=== PATIENT | female | born 1970 | race Caucasian/White ===

== ENCOUNTER 2017-02-28 21:09 | Inpatient (IN) | payer MEDICARE, MEDICAID ==
[~2017-02-28] VITALS: Ht 165.1 cm; Wt 92.7 kg
[2017-02-28 21:10] VITALS: BP 131/84; PULSE 95; RESP 16; TEMP 99.3; O2SAT 98
[2017-02-28] MEDS ORDERED: SODIUM CHLOR 0.9% 1000 ML INJ 1,000 ML IV SCH ×2 (22:14→23:16)
[2017-02-28] MEDS ORDERED: HYDROmorphone HCL PF 1 MG/ML VIAL IVS ONE (22:15)
[2017-02-28] MEDS ORDERED: PANTOPRAZOLE SODIUM 40 MG VIAL IVP ONE (22:15)
[2017-02-28] MEDS ORDERED: SODIUM CHLORIDE 0.9% FLUSH 10 ML FLUSH IV FLUSH PRN (22:15)
[2017-02-28] MEDS ORDERED: ALUMINUM/MAGNESIUM/SIMETH 30 ML CUP PO ONE (22:15)
[2017-02-28] MEDS ORDERED: ONDANSETRON HCL 4 MG/2 ML VIAL IVP ONE (22:15)
[2017-02-28] MEDS ORDERED: LIDOCAINE VISCOUS 2% SOLN 15 ML UDC PO ONE (22:15)
--- NOTE | 2017-02-28 22:17 | PD ---
HPI Chief Complaint: Abdominal Pain Time Seen by Provider: 22:08 Travel History International Travel<30 days: No Contact w/Intl Traveler<30days: No Traveled to known affect area: No History of Present Illness HPI 46 her old female presents for evaluation of abdominal pain. She reports over the past 4 days she's been having myalgias. She developed abdominal pain 2 days ago. She describes it as an aching pain that seems to be worse on the left side of her abdomen and radiating to the left back. Pain is constant, no aggravating or relieving factors. She endorses vomiting for the past 2 days. She tried using [id number] NSAIDs which did not seem to help with her pain. She endorses subjective fevers at home. She denies any dysuria or hematuria, diarrhea or constipation, dietary indiscretions, recent travel, recent surgeries. Denies history of peptic ulcer disease, gastric ulcers, diverticulosis, IBS, IBD, biliary pathology. She reports a history of total hysterectomy. No other abdominal surgeries. She has never had this type of pain before. She has no other complaints at this time. COUNT INCLUDES THE [facility] Past Medical History ?: Not Past Surgical History Eye Surgery: Yes Hysterectomy: Yes Social History Alcohol Use: Yes (occassional) Tobacco Use: Yes Substance Use: No Allergies-Medications (Allergen,Severity, Reaction): Coded Allergies: Morphine (Verified Allergy, Intermediate, 02/28/17) Sulfa (Verified Allergy, Intermediate, 02/28/17) Reported Meds & Prescriptions Reported Meds & Active Scripts Active No Active Prescriptions or Reported Medications Review of Systems Except as stated in HPI: all other systems reviewed are Neg Physical Exam Narrative GENERAL: Well-developed well-nourished female in no acute distress SKIN: Warm and dry. HEAD: Atraumatic. Normocephalic. EYES: Pupils equal and round. No scleral icterus. No injection or drainage. ENT: No nasal bleeding or discharge. Mucous membranes pink and moist. NECK: Trachea midline. No JVD. CARDIOVASCULAR: Regular rate and rhythm. No murmur appreciated. RESPIRATORY: No accessory muscle use. Clear to auscultation. Breath sounds equal bilaterally. GASTROINTESTINAL: Abdomen soft, generalized tenderness to palpation without guarding. No right upper quadrant tenderness. No CVA tenderness. MUSCULOSKELETAL: No obvious deformities. No edema. NEUROLOGICAL: Awake and alert. No obvious cranial nerve deficits. Motor grossly within normal limits. Normal speech. PSYCHIATRIC: Appropriate mood and affect; insight and judgment normal. Data Data Last Documented VS Vital Signs Date Time Temp Pulse Resp B/P Pulse Ox O2 Delivery O2 Flow Rate FiO2 02/28/17 21:10 99.3 95 16 131/84 98 Room Air Orders Complete Blood Count With Diff (02/28/17 22:14) Comprehensive Metabolic Panel (02/28/17 22:14) Lipase (02/28/17 22:14) Lactic Acid (02/28/17 22:14) Urinalysis - C+S If Indicated (02/28/17 22:14) Iv Access Insert/Monitor (02/28/17 22:14) Ecg Monitoring (02/28/17 22:14) Oximetry (02/28/17 22:14) Ondansetron Inj (Zofran Inj) (02/28/17 22:15) Pantoprazole Inj (Protonix Inj) (02/28/17 22:15) Sodium Chlor 0.9% 1000 Ml Inj (Ns 1000 M (02/28/17 22:14) Sodium Chloride 0.9% Flush (Ns Flush) (02/28/17 22:15) Hydromorphone Pf Inj (Dilaudid Pf Inj) (02/28/17 22:15) Al-Mag Hy-Si 40-40-4 Mg/Ml Liq (Mag-Al P (02/28/17 22:15) Lidocaine 2% Viscous (Xylocaine 2% Visco (02/28/17 22:15) Ct Abd/Pel W Iv Contrast(Rout) (02/28/17 22:23) Sodium Chlor 0.9% 1000 Ml Inj (Ns 1000 M (02/28/17 23:16) Iohexol 350 Inj (Omnipaque 350 Inj) (02/28/17 23:43) Urine Culture (02/28/17 23:35) Blood Culture (03/01/17 00:05) Sodium Chlor 0.9% 1000 Ml Inj (Ns 1000 M (03/01/17 00:05) Ceftriaxone Inj (Rocephin Inj) (03/01/17 00:15) Admit To Inpatient (03/01/17 ) Vital Signs (Adult) Q4H (03/01/17 00:23) Activity Oob With Assistance (03/01/17 00:23) Funeral Service Practitioner/Embalmer / Telemetry .CONTINUOUS (03/01/17 00:23) Diet Npo (03/01/17 Breakfast) Sodium Chlor 0.9% 1000 Ml Inj (Ns 1000 M (03/01/17 00:23) Sodium Chloride 0.9% Flush (Ns Flush) (03/01/17 00:30) Sodium Chloride 0.9% Flush (Ns Flush) (03/01/17 09:00) Ondansetron Inj (Zofran Inj) (03/01/17 00:30) Basic Metabolic Panel (Bmp) (03/02/17 06:00) Complete Blood Count With Diff (03/02/17 06:00) Case Management Consult (03/01/17 00:23) Naloxone Inj (Narcan Inj) (03/01/17 00:30) Inpatient Certification (03/01/17 ) Admit Order (Ed Use Only) (03/01/17 00:25) Consult Urology (03/01/17 ) Labs Laboratory Tests Test 02/28/17 02/28/17 02/28/17 22:50 23:05 23:35 White Blood Count 20.0 TH/MM3 Red Blood Count 4.37 MIL/MM3 Hemoglobin 14.1 GM/DL Hematocrit 39.8 % Mean Corpuscular Volume 91.0 FL Mean Corpuscular Hemoglobin 32.3 PG Mean Corpuscular Hemoglobin 35.5 % Concent Red Cell Distribution Width 14.1 % Platelet Count 217 TH/MM3 Mean Platelet Volume 10.4 FL Neutrophils (%) (Auto) 84.4 % Lymphocytes (%) (Auto) 6.5 % Monocytes (%) (Auto) 8.6 % Eosinophils (%) (Auto) 0.3 % Basophils (%) (Auto) 0.2 % Neutrophils # (Auto) 16.9 TH/MM3 Lymphocytes # (Auto) 1.3 TH/MM3 Monocytes # (Auto) 1.7 TH/MM3 Eosinophils # (Auto) 0.1 TH/MM3 Basophils # (Auto) 0.0 TH/MM3 CBC Comment AUTO DIFF Differential Total Cells 100 Counted Neutrophils % (Manual) 71 % Band Neutrophils % 15 % Lymphocytes % 3 % Monocytes % 8 % Eosinophils % 1 % Neutrophils # (Manual) 17.6 TH/MM3 Metamyelocytes 2 % Differential Comment FINAL DIFF MANUAL Toxic Granulation 1+ Toxic Vacuolation PRESENT Platelet Estimate NORMAL Platelet Morphology Comment NORMAL Red Cell Morphology Comment NORMAL Sodium Level 138 MEQ/L Potassium Level 4.5 MEQ/L Chloride Level 103 MEQ/L Carbon Dioxide Level 25.7 MEQ/L Anion Gap 9 MEQ/L Blood Urea Nitrogen 39 MG/DL Creatinine 1.58 MG/DL Estimat Glomerular Filtration 35 ML/MIN Rate Random Glucose 98 MG/DL Calcium Level 8.9 MG/DL Total Bilirubin 0.5 MG/DL Aspartate Amino Transf 23 U/L (AST/SGOT) Alanine Aminotransferase 18 U/L (ALT/SGPT) Alkaline Phosphatase 119 U/L Total Protein 7.1 GM/DL Albumin 2.7 GM/DL Lipase 68 U/L Lactic Acid Level 0.7 mmol/L Urine Color YELLOW Urine Turbidity HAZY Urine pH 6.0 Urine Specific [place] 1.022 Urine Protein 30 mg/dL Urine Glucose (UA) NEG mg/dL Urine Ketones NEG mg/dL Urine Occult Blood MOD Urine Nitrite NEG Urine Bilirubin NEG Urine Urobilinogen LESS THAN 2.0 MG/DL Urine Leukocyte Esterase LARGE Urine RBC 46 /hpf Urine WBC 38 /hpf Urine Squamous Epithelial 1 /hpf Cells Urine Renal Epithelial Cells <1 /hpf Urine Bacteria OCC /hpf Urine Mucus FEW /lpf Microscopic Urinalysis Comment CULTURE INDICATED MDM Medical Decision Making Medical Screen Exam Complete: Yes Emergency Medical Condition: Yes Medical Record Reviewed: Yes Differential Diagnosis Diverticulitis, gastritis, dehydration, pyelonephritis, kidney stone, obstruction Narrative Course 46 year old female with left-sided abdominal pain, nausea and vomiting, chills at home. Plan is for basic lab work, IV fluids, IV pain medication and nausea medicine, urinalysis, CT of the abdomen and pelvis. The patient's lab work and imaging studies been reviewed. She has a left-sided 2 mm ureteral stone, urinalysis reveals large leukocytes and hematuria consistent with urinary tract infection, cultures pending. She has a white count of 20 with 15% bands, BUN 39 creatinine1.58 consistent with acute kidney injury, no history of chronic kidney disease. She does appear to meet servers and sepsis criteria. Therefore the patient will be admitted for IV antibiotics , IV fluids, blood cultures and urine cultures pending. The patient is agreeable to this plan. She was given a total of 3 L of fluid, IV Rocephin. Discussed with Dr. Scott who is agreeable with admission. Sepsis Criteria SIRS Criteria (2 or more): Heart rate over 90, WBC > 65333, < 4000 or > 10% bands Sepsis Criteria (SIRS+source): Infect source susp/known Criteria Outcome: Meets sepsis criteria Diagnosis Primary Impression: Ureteral stone Additional Impressions: Pyelonephritis Acute kidney injury Sepsis Qualified Code: A41.9 - Sepsis, due to unspecified organism Admitting Information Admitting Physician Requests: Admit Scripts No Active Prescriptions or Reported Meds Christos Frazier February 28, 2017 22:17
[2017-02-28 23:09] LABS: AUTOMATED NEUTROPHIL # 16.9 TH/MM3 (1.8-7.7); BASOPHIL % 0.2 % (0.0-2.0); EOSINOPHIL # 0.1 TH/MM3 (0-0.4); EOSINOPHIL % 0.3 % (0.0-4.0); HEMATOCRIT 39.8 % (35.0-46.0); LYMPH % 6.5 % (9.0-44.0); LYMPHOCYTE # 1.3 TH/MM3 (1.0-4.8); MEAN CORPUSCULAR HEMOGLOBIN 32.3 PG (27.0-34.0); MEAN CORPUSCULAR HGB CONC 35.5 % (32.0-36.0); MONO % 8.6 % (0.0-8.0); NEUT % 84.4 % (16.0-70.0); PLATELET COUNT 217 TH/MM3 (150-450); RED BLOOD COUNT 4.37 MIL/MM3 (4.00-5.30); RED CELL DISTRIBUTION WIDTH 14.1 % (11.6-17.2)
[2017-02-28 23:14] LABS: HEMO FLAGS AUTO DIFF
[2017-02-28 23:38] LABS: BANDS 15 % (0-6); EOSINOPHILS 1 % (0-4); METAMYELOCYTES 2 % (0-1); NEUTROPHIL # MANUAL DIFF 17.6 TH/MM3 (1.8-7.7); POLYS (SEG NEUTROPHILS) 71 % (16-70); WBC DIFF SAMPLE 100
[2017-02-28 23:39] LABS: SCAN/DIFF FINAL DIFF MANUAL; TOXIC GRANULATION 1+ (NORMAL); TOXIC VACUOLATION PRESENT (NONE SEEN)
[2017-02-28 23:40] LABS: ALKALINE PHOSPHATASE 119 U/L (45-117); PLATELET ESTIMATE SMEAR NORMAL (NORMAL); PLATELET MORPHOLOGY NORMAL (NORMAL); TOTAL BILIRUBIN ADULT 0.5 MG/DL (0.2-1.0)
[2017-02-28] MEDS ORDERED: IOHEXOL 350 MG/ML 10 ML VIAL (for RAD DIAG) IV ONE (23:43)
[2017-02-28 23:46] LABS: ALT (GPT) 18 U/L (10-53); ANION GAP 9 MEQ/L (5-15); AST (GOT) 23 U/L (15-37); BICARBONATE 25.7 MEQ/L (21.0-32.0); BLOOD UREA NITROGEN 39 MG/DL (7-18); CHLORIDE 103 MEQ/L (98-107); GLOMERULAR FILTRATION RATE 35 ML/MIN (>89); POTASSIUM 4.5 MEQ/L (3.5-5.1); SODIUM (NA) 138 MEQ/L (136-145)
[2017-02-28 23:53] LABS: BACTERIA, URINE OCC /hpf; BLOOD, URINE MOD (NEG); COMMENT (UR) CULTURE INDICATED; CULTURE IF INDICATED CULTURE INDICATED; GLUCOSE,URINE NEG (NEG); KETONE, URINE NEG (NEG); MUCUS URINE FEW /lpf (OCC); NITRITE,URINE NEG (NEG); RENAL EPITHELIAL CELLS <1 /hpf; SQUAMOUS EPITHELIAL CELL URINE 1 /hpf (0-5); URINE COLOR YELLOW (YELLW/STRAW)
--- NOTE | 2017-02-28 23:59 | RADRPT ---
EXAM DATE/TIME: 02/28/2017 23:42 [facility] COMPARISON: No previous studies available for comparison. INDICATIONS : Abdomen pain with vomiting past 2 days. IV CONTRAST: 70 cc Omnipaque 350 (iohexol) IV ORAL CONTRAST: No oral contrast ingested. RADIATION DOSE: 13.73 CTDIvol (mGy) MEDICAL HISTORY : None SURGICAL HISTORY : Hysterectomy. ENCOUNTER: Initial ACUITY: 2 days PAIN SCALE: 8/10 LOCATION: Bilateral abdomen TECHNIQUE: Volumetric scanning of the abdomen and pelvis was performed. Using automated exposure control and ad justment of the mA and/or kV according to patient size, radiation dose was kept as low as reasonably achievable to obtain optimal diagnostic quality images. FINDINGS: LOWER LUNGS: Mild bibasilar atelectasis. LIVER: Homogeneous density without lesion. 2 tiny hepatic cysts. There is no dilation of the biliary tree. No calcified gallstones. SPLEEN: Normal size without lesion. PANCREAS: Within normal limits. KIDNEYS: Normal in size and shape. A 2 mm stone is seen within the proximal left ureter. This projects at the level of the L3-L4 disc space. There is mild stranding around the ureter. No perinephric fluid collec tions. Minimal hydronephrosis. Bilateral 1 mm renal calculi noted. ADRENAL GLANDS: Within normal limits. VASCULAR: There is no aortic aneurysm. BOWEL/MESENTERY: The stomach, small bowel, and colon demonstrate no acute abnormality. There is no free intraperitone al air or fluid. ABDOMINAL WALL: Within normal limits. RETROPERITONEUM: There is no lymphadenopathy. A few tiny scattered retroperitoneal nodes are noted. No adenopathy. BLADDER: No wall thickening or mass. REPRODUCTIVE: Prior hysterectomy. INGUINAL: There is no lymphadenopathy or hernia. MUSCULOSKELETAL: Within normal limits for patient age. CONCLUSION: 1. 2 mm proximal left ureteral stone. Mild hydronephrosis. 2. Bilateral 1 mm renal calculi. Freeman Mathews Jr., MD on February 28, 2017 at 23:54 Board Certified Radiologist. This report was verified electronically.
[2017-03-01] MEDS ORDERED: SODIUM CHLOR 0.9% 1000 ML INJ 1,000 ML IV SCH (00:05)
[2017-03-01] MEDS ORDERED: cefTRIAXone INJ 1,000 MG in SODIUM CHLORIDE 0.9% INJ 100 ML IV ONE (00:15)
[2017-03-01] MEDS ORDERED: NALOXONE HCL 0.4 MG/ML AMP IV PRN (00:30)
[2017-03-01] MEDS: ONDANSETRON HCL 4 MG/2 ML VIAL IVP PRN ×3 (00:50→21:13)
[2017-03-01] MEDS: SODIUM CHLOR 0.9% 1000 ML INJ 1,000 ML IV SCH ×3 (01:19→22:27)
[2017-03-01] MEDS ORDERED: HYDROmorphone HCL PF 1 MG/ML VIAL IV PUSH PRN (01:30)
--- NOTE | 2017-03-01 01:39 | HHI.HP ---
[facility] Primary [facility] Physician No Primary Care Physician Admission Diagnosis pyelonephritis, left ureteral stone, KOJO, sepsis Diagnoses: Travel History International Travel<30 Days: No Contact w/Intl Traveler <30 Da: No Traveled to Known Affected Are: No History of Present Illness History from patient, ER provider communication, and review of medical records. Patient reported that the past few days, she was having flulike symptoms with body aches. She states she did have some fever but she did not measure it though. Also reports of nausea, vomiting, difficulty breathing. Has associated abdominal pain and back pains. Denies any blood in her urine or in her stool. She states that her left back pain is worse Denies burning urination or pain on urination. Apart from the above, patient denies any other symptoms such as chest pain/ palpitations/shortness of breath/syncopal episodes. Review of Systems Except as stated in HPI: all other systems reviewed are Neg Past Family Social History Past Medical History last year had htn- not on meds now retinal damage legally blind kidney infections before hyperlipidemia- not on meds anymore Past Surgical History hysterectomy 2005 cataract sx left eye vitrectomy both eyes Allergies: Coded Allergies: Morphine (Verified Allergy, Intermediate, 02/28/17) Sulfa (Verified Allergy, Intermediate, 02/28/17) Family History mother- copd father - cancer- lung maybe, went to liver and brain both parents- htn, lipid grandma- diverticulitis Social History smokes less than a pack a day drinks 3- 4 drinks a day, vodka with cranberry or soda- havent had drink for 5 days no drugs Physical Exam Vital Signs Vital Signs Date Time Temp Pulse Resp B/P Pulse Ox O2 Delivery O2 Flow Rate FiO2 02/28/17 21:10 99.3 95 16 131/84 98 Room Air Physical Exam GENERAL: This is a well-nourished, well-developed patient, in no apparent distress. SKIN: No rashes, ecchymoses or lesions. Cool and dry. HEAD: Atraumatic. Normocephalic. No temporal or scalp tenderness. EYES: No scleral icterus. No injection or drainage. ENT: . Uvula midline. Airway patent. NECK: Trachea midline. No JVD or lymphadenopathy. Supple, nontender, no meningeal signs. CARDIOVASCULAR: Regular rate and rhythm without murmurs, gallops, or rubs. RESPIRATORY: Clear to auscultation. Breath sounds equal bilaterally. No wheezes , rales, or rhonchi. GASTROINTESTINAL: Abdomen soft, non-tender, nondistended.. No guarding. MUSCULOSKELETAL: Extremities without clubbing, cyanosis, or edema. No joint tenderness, effusion, or edema noted. No calf tenderness. Negative Homans sign bilaterally. NEUROLOGICAL: Awake and alert. Cranial nerves II through XII intact. Motor and sensory grossly within normal limits. Five out of 5 muscle strength in all muscle groups. Normal speech. Laboratory Laboratory Tests Test 02/28/17 02/28/17 02/28/17 22:50 23:05 23:35 White Blood Count 20.0 Red Blood Count 4.37 Hemoglobin 14.1 Hematocrit 39.8 Mean Corpuscular Volume 91.0 Mean Corpuscular Hemoglobin 32.3 Mean Corpuscular Hemoglobin 35.5 Concent Red Cell Distribution Width 14.1 Platelet Count 217 Mean Platelet Volume 10.4 Neutrophils (%) (Auto) 84.4 Lymphocytes (%) (Auto) 6.5 Monocytes (%) (Auto) 8.6 Eosinophils (%) (Auto) 0.3 Basophils (%) (Auto) 0.2 Neutrophils # (Auto) 16.9 Lymphocytes # (Auto) 1.3 Monocytes # (Auto) 1.7 Eosinophils # (Auto) 0.1 Basophils # (Auto) 0.0 CBC Comment AUTO DIFF Differential Total Cells 100 Counted Neutrophils % (Manual) 71 Band Neutrophils % 15 Lymphocytes % 3 Monocytes % 8 Eosinophils % 1 Neutrophils # (Manual) 17.6 Metamyelocytes 2 Differential Comment FINAL DIFF MANUAL Toxic Granulation 1+ Toxic Vacuolation PRESENT Platelet Estimate NORMAL Platelet Morphology Comment NORMAL Red Cell Morphology Comment NORMAL Sodium Level 138 Potassium Level 4.5 Chloride Level 103 Carbon Dioxide Level 25.7 Anion Gap 9 Blood Urea Nitrogen 39 Creatinine 1.58 Estimat Glomerular Filtration 35 Rate Random Glucose 98 Calcium Level 8.9 Total Bilirubin 0.5 Aspartate Amino Transf 23 (AST/SGOT) Alanine Aminotransferase 18 (ALT/SGPT) Alkaline Phosphatase 119 Total Protein 7.1 Albumin 2.7 Lipase 68 Lactic Acid Level 0.7 Urine Color YELLOW Urine Turbidity HAZY Urine pH 6.0 Urine Specific [place] 1.022 Urine Protein 30 Urine Glucose (UA) NEG Urine Ketones NEG Urine Occult Blood MOD Urine Nitrite NEG Urine Bilirubin NEG Urine Urobilinogen LESS THAN 2.0 Urine Leukocyte Esterase LARGE Urine RBC 46 Urine WBC 38 Urine Squamous Epithelial 1 Cells Urine Renal Epithelial Cells <1 Urine Bacteria OCC Urine Mucus FEW Microscopic Urinalysis Comment CULTURE INDICATED Date/Time Procedure Status Source Growth 03/01/17 00:20 Aerobic Blood Culture Received Blood Peripheral Pending 03/01/17 00:20 Anaerobic Blood Culture Received Blood Peripheral Pending 02/28/17 23:35 Urine Culture Received Urine Random Urine Pending Result Diagram: 02/28/17224902/28/172249 Imaging Last 48 hours Impressions Abdomen/Pelvis CT 02/28/173 Signed Impressions: Service Date/Time: Tuesday, February 28, 2017 23:42 - CONCLUSION: 1. 2 mm proximal left ureteral stone. Mild hydronephrosis. 2. Bilateral 1 mm renal calculi. Freeman Mathews Jr., MD Assessment and Plan Assessment and Plan Impression: Acute obstructive uropathy from renal stone Sepsis UTI as source Plan: iv hydration pain control will follow culture results urology consult Rocephin 1 g iv q24hrs DVT prophylaxis with lovenox Physician Certification 2 Midnight Certification Type: Admission for Inpatient Services Order for Inpatient Services The services are ordered in accordance with Medicare regulations or non- Medicare payer requirements, as applicable. In the case of services not specified as inpatient-only, they are appropriately provided as inpatient services in accordance with the 2-midnight benchmark. Estimated LOS (days): 2 days is the estimated time the patient will need to remain in the hospital, assuming treatment plan goals are met and no additional complications. Post-Hospital Plan: Home Lawson Scott MD March 01, 2017 01:39
[2017-03-01 01:56] VITALS: BP 130/78; PULSE 70; RESP 16; O2SAT 98
[2017-03-01 02:10] VITALS: BP 104/54; PULSE 83; RESP 16; TEMP 97.5; O2SAT 94
[2017-03-01 05:24] VITALS: BP 93/52; PULSE 78; RESP 16; TEMP 97.8; O2SAT 94
[2017-03-01] MEDS: HYDROmorphone HCL PF 1 MG/ML VIAL IV PUSH PRN (05:51)
[2017-03-01 08:00] VITALS: BP 104/59; PULSE 72; RESP 20; TEMP 97.6; O2SAT 95
--- NOTE | 2017-03-01 08:15 | PD.CONS ---
HPI Service Urology Consult Requested By Primary Care Physician No Primary Care Physician Diagnosis: History of Present Illness 46-year-old female presents with acute onset of left-sided flank pain associated with nausea and vomiting. CT scan ER demonstrates a 2 mm proximal left ureteral stone with mild to moderate hydronephrosis. She denies any history of stones in the past. She denies any significant medical problems as well as taking any medications. She denies any fever or chills. Review of Systems Constitutional: DENIES: Diaphoretic episodes Endocrine: DENIES: Abnorml menstrual pattern Eyes: DENIES: Blurred vision Ears, nose, mouth, throat: DENIES: Tinnitus Respiratory: DENIES: Apneas Cardiovascular: DENIES: Chest pain Gastrointestinal: COMPLAINS OF: Abdominal pain Musculoskeletal: DENIES: Joint pain Integumentary: DENIES: Abnormal pigmentation Hematologic/lymphatic: DENIES: Bruising Immunologic/allergic: DENIES: Eczema Neurologic: DENIES: Abnormal gait Past Family Social History Past Medical History Denies any significant medical problems at present Past Surgical History Total abdominal hysterectomy Vitrectomy Allergies: Coded Allergies: Morphine (Verified Allergy, Intermediate, 02/28/17) Sulfa (Verified Allergy, Intermediate, 02/28/17) Family History Denies any history of stones Social History Admits to smoking and drinking at times. Physical Exam Vital Signs Date Time Temp Pulse Resp B/P Pulse Ox O2 Delivery O2 Flow Rate FiO2 03/01/17 05:24 97.8 78 16 93/52 94 03/01/17 02:10 97.5 83 16 104/54 94 03/01/17 01:56 70 16 130/78 98 Room Air 02/28/17 21:10 99.3 95 16 131/84 98 Room Air Physical Exam GENERAL: This is a well-nourished, well-developed patient, in no apparent distress. SKIN: No rashes, ecchymoses or lesions. Cool and dry. HEAD: Atraumatic. Normocephalic. No temporal or scalp tenderness. EYES: Pupils equal round and reactive. Extraocular motions intact. No scleral icterus. No injection or drainage. ENT: Nose without bleeding, purulent drainage or septal hematoma. Throat without erythema, tonsillar hypertrophy or exudate. Uvula midline. Airway patent. NECK: Trachea midline. No JVD or lymphadenopathy. Supple, nontender, no meningeal signs. CARDIOVASCULAR: Regular rate and rhythm without murmurs, gallops, or rubs. RESPIRATORY: Clear to auscultation. Breath sounds equal bilaterally. No wheezes , rales, or rhonchi. GASTROINTESTINAL: Abdomen soft, left-sided tenderness is noted. No hepato- splenomegaly, or palpable masses. No guarding. Left CVA tenderness is noted. GENITOURINARY: Normal female external genitalia MUSCULOSKELETAL: Extremities without clubbing, cyanosis, or edema. No joint tenderness, effusion, or edema noted. No calf tenderness. Negative Homans sign bilaterally. NEUROLOGICAL: Awake and alert. Cranial nerves II through XII intact. Motor and sensory grossly within normal limits. Five out of 5 muscle strength in all muscle groups. Normal speech. Laboratory Tests Test 02/28/17 02/28/17 02/28/17 22:50 23:05 23:35 White Blood Count 20.0 Red Blood Count 4.37 Hemoglobin 14.1 Hematocrit 39.8 Mean Corpuscular Volume 91.0 Mean Corpuscular Hemoglobin 32.3 Mean Corpuscular Hemoglobin 35.5 Concent Red Cell Distribution Width 14.1 Platelet Count 217 Mean Platelet Volume 10.4 Neutrophils (%) (Auto) 84.4 Lymphocytes (%) (Auto) 6.5 Monocytes (%) (Auto) 8.6 Eosinophils (%) (Auto) 0.3 Basophils (%) (Auto) 0.2 Neutrophils # (Auto) 16.9 Lymphocytes # (Auto) 1.3 Monocytes # (Auto) 1.7 Eosinophils # (Auto) 0.1 Basophils # (Auto) 0.0 CBC Comment AUTO DIFF Differential Total Cells 100 Counted Neutrophils % (Manual) 71 Band Neutrophils % 15 Lymphocytes % 3 Monocytes % 8 Eosinophils % 1 Neutrophils # (Manual) 17.6 Metamyelocytes 2 Differential Comment FINAL DIFF MANUAL Toxic Granulation 1+ Toxic Vacuolation PRESENT Platelet Estimate NORMAL Platelet Morphology Comment NORMAL Red Cell Morphology Comment NORMAL Sodium Level 138 Potassium Level 4.5 Chloride Level 103 Carbon Dioxide Level 25.7 Anion Gap 9 Blood Urea Nitrogen 39 Creatinine 1.58 Estimat Glomerular Filtration 35 Rate Random Glucose 98 Calcium Level 8.9 Total Bilirubin 0.5 Aspartate Amino Transf 23 (AST/SGOT) Alanine Aminotransferase 18 (ALT/SGPT) Alkaline Phosphatase 119 Total Protein 7.1 Albumin 2.7 Lipase 68 Lactic Acid Level 0.7 Urine Color YELLOW Urine Turbidity HAZY Urine pH 6.0 Urine Specific [place] 1.022 Urine Protein 30 Urine Glucose (UA) NEG Urine Ketones NEG Urine Occult Blood MOD Urine Nitrite NEG Urine Bilirubin NEG Urine Urobilinogen LESS THAN 2.0 Urine Leukocyte Esterase LARGE Urine RBC 46 Urine WBC 38 Urine Squamous Epithelial 1 Cells Urine Renal Epithelial Cells <1 Urine Bacteria OCC Urine Mucus FEW Microscopic Urinalysis Comment CULTURE INDICATED Date/Time Procedure Status Source Growth 03/01/17 00:20 Aerobic Blood Culture Received Blood Peripheral Pending 03/01/17 00:20 Anaerobic Blood Culture Received Blood Peripheral Pending 02/28/17 23:35 Urine Culture Received Urine Random Urine Pending Result Diagram: 02/28/17 [id number] Imaging Last Impressions Abdomen/Pelvis CT 02/28/173 Signed Impressions: Service Date/Time: Tuesday, February 28, 2017 23:42 - CONCLUSION: 1. 2 mm proximal left ureteral stone. Mild hydronephrosis. 2. Bilateral 1 mm renal calculi. Freeman Mathews Jr., MD Assessment and Plan Assessment and Plan 46-year-old female with evidence of left pyelonephritis with a 2 mm proximal ureteral calculus with mild/moderate hydronephrosis Patient presently refusing cystoscopy with placement of left double-J stent. Given the small size a 2 mm stone should pass on its own with aggressive hydration. At the time of discharge patient will require adequate pain medicine control as well as anti-medics to avoid a quick return to the emergency room She can follow up in the office in 6 weeks. Javier Millard DO March 01, 2017 08:15
[2017-03-01] MEDS: ENOXAPARIN SODIUM 40 MG/0.4 ML SYRINGE SQ SCH (08:42)
[2017-03-01] MEDS: SODIUM CHLORIDE 0.9% FLUSH 10 ML FLUSH IV FLUSH SCH ×2 (08:42→21:00)
[2017-03-01] MEDS: HYDROmorphone HCL 2 MG TAB PO PRN ×4 (08:43→22:26)
[2017-03-01 12:25] VITALS: BP 136/80; PULSE 77; RESP 18; TEMP 97.5; O2SAT 98
--- NOTE | 2017-03-01 12:49 | HHI.PR ---
Subjective Remarks in no distress. says that the pain is better today. no fever, nausea or vomiting. Objective Vitals Vital Signs Date Time Temp Pulse Resp B/P Pulse Ox O2 Delivery O2 Flow Rate FiO2 03/01/17 12:25 97.5 77 18 136/80 98 03/01/17 09:30 15 03/01/17 08:00 97.6 72 20 104/59 95 03/01/17 05:24 97.8 78 16 93/52 94 03/01/17 02:10 97.5 83 16 104/54 94 03/01/17 01:56 70 16 130/78 98 Room Air 02/28/17 21:10 99.3 95 16 131/84 98 Room Air I/O 02/28/17 02/28/17 02/28/17 03/01/17 03/01/17 03/01/17 07:00 15:00 23:00 07:00 15:00 23:00 Intake Total 407 ml Output Total 400 ml Balance 7 ml Intake IV Total 407 ml Output Urine Total 400 ml # Voids 3 Result Diagram: 02/28/17224902/28/172249 Imaging Last Impressions Abdomen/Pelvis CT 02/28/173 Signed Impressions: Service Date/Time: Tuesday, February 28, 2017 23:42 - CONCLUSION: 1. 2 mm proximal left ureteral stone. Mild hydronephrosis. 2. Bilateral 1 mm renal calculi. Freeman Mathews Jr., MD Objective Remarks GENERAL: This is a well-nourished, well-developed patient, in no apparent distress. CARDIOVASCULAR: Regular rate and regular rhythm without murmurs, gallops, or rubs. RESPIRATORY: Clear to auscultation. Breath sounds equal bilaterally. No wheezes , rales, or rhonchi. GASTROINTESTINAL: Abdomen soft, non-tender, nondistended. Normal, active bowel sounds MUSCULOSKELETAL: Extremities without clubbing, cyanosis, or edema. NEURO: Alert & Oriented x4 to person, place, time, situation. Moves all ext x4 Procedures none Medications and IVs Current Medications Ondansetron HCl (Zofran Inj) 4 mg ONCE ONCE IVP Last administered on 02/28/17t 22:58; Start 02/28/17 at 22:15; Stop 02/28/17 at 22:16; Status DC Pantoprazole Sodium 40 mg 40 mg ONCE ONCE IVP Last administered on 02/28/17 22 :58; Start 02/28/17 at 22:15; Stop 02/28/17 at 22:16; Status DC Sodium Chloride (NS 1000 ml Inj) 1,000 ml @ 1,000 mls/hr Q1H IV Last administered on 02/28/17 22:58; Start 02/28/17 at 22:14; Stop 02/28/17 at 23:13; Status DC Sodium Chloride (NS Flush) 2 ml UNSCH PRN IV FLUSH FLUSH AFTER USING IV ACCESS Last administered on 02/28/17 22:59; Start 02/28/17 at 22:15; Stop 03/01/17 at 00 :27; Status DC Hydromorphone HCl (Dilaudid Pf Inj) 1 mg ONCE ONCE IVS Last administered on 22:59; Start 02/28/17 at 22:15; Stop 02/28/17 at 22:16; Status DC Al Hydrox/Mg Hydrox/Simethicone (Mag-Al Plus Susp Liq) 30 ml ONCE ONCE PO Last administered on 02/28/17 22:59; Start 02/28/17 at 22:15; Stop 02/28/17 at 22: 16; Status DC Lidocaine HCl 15 ml 15 ml ONCE ONCE PO Last administered on 02/28/17 22:59; Start 02/28/17 at 22:15; Stop 02/28/17 at 22:16; Status DC Sodium Chloride (NS 1000 ml Inj) 1,000 ml @ 1,000 mls/hr Q1H IV Last administered on 02/28/17 23:52; Start 02/28/17 at 23:16; Stop 03/01/17 at 00:15; Status DC Iohexol 70 ml 70 ml STK-MED ONCE IV Last administered on 02/28/17 23:43; Start 02/28/17 at 23:43; Stop 02/28/17 at 23:44; Status DC Sodium Chloride 1,000 ml @ 1,000 mls/hr Q1H IV Last administered on 03/01/17 00:38; Start 03/01/17 at 00:05; Stop 03/01/17 at 01:04; Status DC Ceftriaxone Sodium 1000 mg/ Sodium Chloride 100 ml @ 200 mls/hr ONCE ONCE IV Last administered on 03/01/17 00:50; Start 03/01/17 at 00:15; Stop 03/01/17 at 00:44; Status DC Sodium Chloride (NS 1000 ml Inj) 1,000 ml @ 100 mls/hr Q10H IV Last administered on 03/01/17 10:23; Start 03/01/17 at 00:23 Sodium Chloride (NS Flush) 2 ml UNSCH PRN IV FLUSH FLUSH AFTER USING IV ACCESS ; Start 03/01/17 at 00:30 Sodium Chloride (NS Flush) 2 ml BID IV FLUSH Last administered on 03/01/17 08: 42; Start 03/01/17 at 09:00 Ondansetron HCl (Zofran Inj) 4 mg Q6H PRN IVP NAUSEA OR VOMITING Last administered on 03/01/17 05:51; Start 03/01/17 at 00:30 Naloxone HCl (Narcan Inj) 0.4 mg UNSCH PRN IV SEE LABEL COMMENTS; Start at 00:30 Hydromorphone HCl (Dilaudid Pf Inj) 0.2 mg Q4H PRN IV PUSH pain >5 Last administered on 03/01/17 01:55; Start 03/01/17 at 01:30; Stop 03/01/17 at 05:07 ; Status DC Hydromorphone HCl 0.5 mg 0.5 mg Q4H PRN IV PUSH PAIN >5 Last administered on 05:51; Start 03/01/17 at 05:15 Ceftriaxone Sodium/Sodium Chloride (Rocephin Inj/NS Inj) 100 ml @ 200 mls/hr Q12H IV ; Start 03/01/17 at 12:00 Enoxaparin Sodium (Lovenox Inj) 40 mg Q24H SQ Last administered on 03/01/17 08 :42; Start 03/01/17 at 09:00 Hydromorphone HCl (Dilaudid) 2 mg Q6H PRN PO pain 6-10 Last administered on 08:43; Start 03/01/17 at 08:15 A/P Assessment and Plan A/P Acute obstructive uropathy from renal stone with Sepsis due to UTI as the source - continue with IV antibiotic -follow the cultures -continue with pain control -urology evaluation appreciated; patient refused cystoscopy and stent placement. acute kidney injury likely due to obstructive uropathy - continue IV fluid -will monitor the renal function Discharge Planning possible dc home in am if stable-pending the cultures and renal function. Jean Claude Bhagat MD March 01, 2017 12:49
[2017-03-01] MEDS: cefTRIAXone INJ 1,000 MG in SODIUM CHLORIDE 0.9% INJ 100 ML IV SCH (14:09)
[2017-03-01 20:00] VITALS: BP 100/55; PULSE 80; RESP 20; TEMP 100.3; O2SAT 94
[2017-03-02] VITALS (7 sets, daily range): BP systolic 98–164; BP diastolic 56–82; PULSE 70–81; RESP 20–22; TEMP 96.2–99.8; O2SAT 92–98
[2017-03-02] MEDS: cefTRIAXone INJ 1,000 MG in SODIUM CHLORIDE 0.9% INJ 100 ML IV SCH ×2 (00:38→14:21)
[2017-03-02] MEDS: HYDROmorphone HCL 2 MG TAB PO PRN ×6 (02:28→22:04)
[2017-03-02] MEDS: ONDANSETRON HCL 4 MG/2 ML VIAL IVP PRN ×3 (06:32→18:03)
[2017-03-02] MEDS: SODIUM CHLOR 0.9% 1000 ML INJ 1,000 ML IV SCH ×3 (06:35→22:06)
[2017-03-02 07:25] LABS: AUTOMATED NEUTROPHIL # 5.4 TH/MM3 (1.8-7.7); BASOPHIL % 0.5 % (0.0-2.0); EOSINOPHIL # 0.2 TH/MM3 (0-0.4); EOSINOPHIL % 2.7 % (0.0-4.0); HEMO FLAGS DIFF FINAL; LYMPH % 17.3 % (9.0-44.0); LYMPHOCYTE # 1.4 TH/MM3 (1.0-4.8); MEAN CELL VOLUME 93.3 FL (80.0-100.0); MEAN CORPUSCULAR HEMOGLOBIN 30.8 PG (27.0-34.0); MEAN CORPUSCULAR HGB CONC 33.1 % (32.0-36.0); MONO % 14.7 % (0.0-8.0); NEUT % 64.8 % (16.0-70.0); PLATELET COUNT 184 TH/MM3 (150-450); RED BLOOD COUNT 3.86 MIL/MM3 (4.00-5.30); RED CELL DISTRIBUTION WIDTH 14.4 % (11.6-17.2); WHITE BLOOD COUNT 8.3 TH/MM3 (4.0-11.0)
[2017-03-02 07:54] LABS: BICARBONATE 24.9 MEQ/L (21.0-32.0); POTASSIUM 3.2 MEQ/L (3.5-5.1)
[2017-03-02] MEDS: SODIUM CHLORIDE 0.9% FLUSH 10 ML FLUSH IV FLUSH SCH ×2 (08:34→21:00)
[2017-03-02] MEDS: ENOXAPARIN SODIUM 40 MG/0.4 ML SYRINGE SQ SCH (08:35)
[2017-03-02] MEDS ORDERED: POTASSIUM CHLORIDE 10 MEQ CONTROLLED RELEASE TAB PO ONE ×2 (12:30→17:00)
--- NOTE | 2017-03-02 12:42 | HHI.PR ---
Subjective Remarks still with some back pain. no nausea or vomiting. afebrile. Objective Vitals Vital Signs Date Time Temp Pulse Resp B/P Pulse Ox O2 Delivery O2 Flow Rate FiO2 03/02/17 08:49 98.1 73 22 130/70 96 03/02/17 07:34 15 03/02/17 04:00 98.4 70 20 116/74 98 03/02/17 02:13 95 03/02/17 00:00 98.7 71 20 98/56 96 03/01/17 20:00 100.3 80 20 100/55 94 03/01/17 15:08 15 I/O 03/01/17 03/01/17 03/01/17 03/02/17 03/02/17 03/02/17 07:00 15:00 23:00 07:00 15:00 23:00 Intake Total 407 ml 1000 ml 1169 ml Output Total 400 ml Balance 7 ml 1000 ml 1169 ml Intake Oral 360 ml IV Total 407 ml 1000 ml 809 ml Output Urine Total 400 ml # Voids 3 2 4 # Bowel Movements 0 Result Diagram: 03/02/1723 03/02/1723 Imaging Last Impressions Abdomen/Pelvis CT 02/28/173 Signed Impressions: Service Date/Time: Tuesday, February 28, 2017 23:42 - CONCLUSION: 1. 2 mm proximal left ureteral stone. Mild hydronephrosis. 2. Bilateral 1 mm renal calculi. Freeman Mathews Jr., MD Objective Remarks GENERAL: This is a well-nourished, well-developed patient, in no apparent distress. CARDIOVASCULAR: Regular rate and regular rhythm without murmurs, gallops, or rubs. RESPIRATORY: Clear to auscultation. Breath sounds equal bilaterally. No wheezes , rales, or rhonchi. GASTROINTESTINAL: Abdomen soft, non-tender, nondistended. Normal, active bowel sounds MUSCULOSKELETAL: Extremities without clubbing, cyanosis, or edema. NEURO: Alert & Oriented x4 to person, place, time, situation. Moves all ext x4 Procedures none Medications and IVs Current Medications Ondansetron HCl (Zofran Inj) 4 mg ONCE ONCE IVP Last administered on 02/28/17t 22:58; Start 02/28/17 at 22:15; Stop 02/28/17 at 22:16; Status DC Pantoprazole Sodium 40 mg 40 mg ONCE ONCE IVP Last administered on 02/28/17 22 :58; Start 02/28/17 at 22:15; Stop 02/28/17 at 22:16; Status DC Sodium Chloride (NS 1000 ml Inj) 1,000 ml @ 1,000 mls/hr Q1H IV Last administered on 02/28/17 22:58; Start 02/28/17 at 22:14; Stop 02/28/17 at 23:13; Status DC Sodium Chloride (NS Flush) 2 ml UNSCH PRN IV FLUSH FLUSH AFTER USING IV ACCESS Last administered on 02/28/17 22:59; Start 02/28/17 at 22:15; Stop 03/01/17 at 00 :27; Status DC Hydromorphone HCl (Dilaudid Pf Inj) 1 mg ONCE ONCE IVS Last administered on 22:59; Start 02/28/17 at 22:15; Stop 02/28/17 at 22:16; Status DC Al Hydrox/Mg Hydrox/Simethicone (Mag-Al Plus Susp Liq) 30 ml ONCE ONCE PO Last administered on 02/28/17 22:59; Start 02/28/17 at 22:15; Stop 02/28/17 at 22: 16; Status DC Lidocaine HCl 15 ml 15 ml ONCE ONCE PO Last administered on 02/28/17 22:59; Start 02/28/17 at 22:15; Stop 02/28/17 at 22:16; Status DC Sodium Chloride (NS 1000 ml Inj) 1,000 ml @ 1,000 mls/hr Q1H IV Last administered on 02/28/17 23:52; Start 02/28/17 at 23:16; Stop 03/01/17 at 00:15; Status DC Iohexol 70 ml 70 ml STK-MED ONCE IV Last administered on 02/28/17 23:43; Start 02/28/17 at 23:43; Stop 02/28/17 at 23:44; Status DC Sodium Chloride 1,000 ml @ 1,000 mls/hr Q1H IV Last administered on 03/01/17 00:38; Start 03/01/17 at 00:05; Stop 03/01/17 at 01:04; Status DC Ceftriaxone Sodium 1000 mg/ Sodium Chloride 100 ml @ 200 mls/hr ONCE ONCE IV Last administered on 03/01/17 00:50; Start 03/01/17 at 00:15; Stop 03/01/17 at 00:44; Status DC Sodium Chloride (NS 1000 ml Inj) 1,000 ml @ 100 mls/hr Q10H IV Last administered on 03/02/17 06:35; Start 03/01/17 at 00:23 Sodium Chloride (NS Flush) 2 ml UNSCH PRN IV FLUSH FLUSH AFTER USING IV ACCESS ; Start 03/01/17 at 00:30 Sodium Chloride (NS Flush) 2 ml BID IV FLUSH Last administered on 03/02/17 08: 34; Start 03/01/17 at 09:00 Ondansetron HCl (Zofran Inj) 4 mg Q6H PRN IVP NAUSEA OR VOMITING Last administered on 03/02/17 10:44; Start 03/01/17 at 00:30 Naloxone HCl (Narcan Inj) 0.4 mg UNSCH PRN IV SEE LABEL COMMENTS; Start at 00:30 Hydromorphone HCl (Dilaudid Pf Inj) 0.2 mg Q4H PRN IV PUSH pain >5 Last administered on 03/01/17 01:55; Start 03/01/17 at 01:30; Stop 03/01/17 at 05:07 ; Status DC Hydromorphone HCl 0.5 mg 0.5 mg Q4H PRN IV PUSH PAIN >5 Last administered on 05:51; Start 03/01/17 at 05:15 Ceftriaxone Sodium/Sodium Chloride (Rocephin Inj/NS Inj) 100 ml @ 200 mls/hr Q12H IV Last administered on 03/02/17 00:38; Start 03/01/17 at 12:00 Enoxaparin Sodium (Lovenox Inj) 40 mg Q24H SQ Last administered on 03/02/17 08 :35; Start 03/01/17 at 09:00 Hydromorphone HCl (Dilaudid) 2 mg Q6H PRN PO pain 6-10 Last administered on 14:08; Start 03/01/17 at 08:15; Stop 03/01/17 at 14:16; Status DC Hydromorphone HCl (Dilaudid) 2 mg Q4HR PRN PO pain 6-10 Last administered on t 10:39; Start 03/01/17 at 16:00 A/P Assessment and Plan A/P Acute obstructive uropathy from renal stone with Sepsis due to UTI as the source - continue with IV antibiotic -UC with e-coli. -continue with pain control -urology evaluation appreciated; patient refused cystoscopy and stent placement. acute kidney injury likely due to obstructive uropathy-improved - continue IV fluid bacteremia with Viridans strep- - continue antibiotic - check echo -consult ID hypokalemia; will replace as needed. Discharge Planning not ready for discharge today. work-up in progress. Jean Claude Bhagat MD March 02, 2017 12:42
--- NOTE | 2017-03-02 14:46 | PD.ID.CON ---
History of Present Illness Service ID Consult Requested By Reason for Consult Evaluation and Mment of Strep Viridans bacteremia. Primary Care Physician No Primary Care Physician Diagnoses: History of Present Illness is a 46 y/o CF with PMHx of retinal detachment, reported h/o being legally blind. 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 She states she had subjective fevers. She also reports of nausea, vomiting and difficulty breathing. Has associated abdominal pain and back pains. She report midback pain. Denies any blood in her urine or in her stool. She states that her left back pain is worse. Denies burning urination or pain on urination. Apart from the above, patient denies any other symptoms such as chest pain/palpitations/shortness of breath/syncopal episodes. Pt underwent sepsis workup on admission. Blood cultures are positive for strep viridans. Urine culture is positive for Escherichia coli. CT of the abdomen and pelvis was done which shows hydronephrosis or stone. Urology has seen the patient and apparently the patient has refused any urological procedures such as stent at the present time. Urology recommends aggressive hydration with the patient passing this stone spontaneously. Infectious disease is consulted for evaluation and management of strep viridans bacteremia. Pertinent positives and negatives: Patient reports her HIV and hepatitis profile done as a routine test was negative one year back. Patient denies any prior history of endocarditis or any other infections. Patient adamantly denies intravenous drug abuse. She denies any dysuria to me. She denies any GI bleed or black tarry stools. Review of Systems ROS Limitations: Poor Historian, Other (does not appear reliable historian.) Constitutional: COMPLAINS OF: Fever, Chills, DENIES: Diaphoretic episodes, Fatigue, Weight gain, Weight loss, Dizziness, Change in appetite, Night Sweats Endocrine: DENIES: Abnorml menstrual pattern, Heat/cold intolerance, Polydipsia , Polyuria, Polyphagia Eyes: DENIES: Blurred vision, Diplopia, Eye inflammation, Eye pain, Vision loss , Photosensitivity, Double Vision Ears, nose, mouth, throat: DENIES: Tinnitus, Hearing loss, Vertigo, Nasal discharge, Oral lesions, Throat pain, Hoarseness, Ear Pain, Running Nose, Epistaxis, Sinus Pain, Toothache, Odynophagia Respiratory: DENIES: Apneas, Cough, Snoring, Wheezing, Hemoptysis, Sputum production, Shortness of breath Cardiovascular: DENIES: Chest pain, Palpitations, Syncope, Dyspnea on Exertion , PND, Lower Extremity Edema, Orthopnea, Claudication Gastrointestinal: DENIES: Abdominal pain, Black stools, Bloody stools, Constipation, Diarrhea, Nausea, Vomiting, Difficulty Swallowing, Anorexia Genitourinary: DENIES: Abnormal vaginal bleeding, Dysmenorrhea, Dyspareunia, Sexual dysfunction, Urinary frequency, Urinary incontinence, Urgency, Hematuria , Dysuria, Nocturia, Vaginal discharge Musculoskeletal: COMPLAINS OF: Back pain, DENIES: Joint pain, Muscle aches, Stiffness, Joint Swelling, Neck pain Integumentary: DENIES: Abnormal pigmentation, Pruritus, Rash, Nail changes, Breast masses, Breast skin changes, Nipple discharge Hematologic/lymphatic: DENIES: Bruising, Lymphadenopathy Immunologic/allergic: DENIES: Eczema, Urticaria Neurologic: DENIES: Abnormal gait, Headache, Localized weakness, Paresthesias, Seizures, Speech Problems, Tremor, Poor Balance Psychiatric: DENIES: Anxiety, Confusion, Mood changes, Depression, Hallucinations, Agitation, Suicidal Ideation, Homicidal Ideation, Delusions Except as stated in HPI: all other systems reviewed are Neg Past Family Social History Allergies: Coded Allergies: Morphine (Verified Allergy, Intermediate, 02/28/17) Sulfa (Verified Allergy, Intermediate, 02/28/17) Past Medical History HTN not on meds. Retinal damage reports being legally blind kidney infections before hyperlipidemia- not on meds anymore. Past Surgical History hysterectomy 2004 cataract sx left eye vitrectomy both eyes Reported Medications Reported Meds & Active Scripts Active No Active Prescriptions or Reported Medications Active Ordered Medications Current Medications Medications (Trade) Dose Ordered Sig/Debbi Route Start Time Stop Time Status Last Admin (NS 1000 ml Inj) 1,000 ml @ 100 mls/hr Q10H IV 03/01/17 00:23 03/02/17 06:35 (NS Flush) 2 ml UNSCH PRN IV FLUSH 03/01/17 00:30 (NS Flush) 2 ml BID IV FLUSH 03/01/17 09:00 03/02/17 08:34 (Zofran Inj) 4 mg Q6H PRN IVP 03/01/17 00:30 03/02/17 10:44 (Narcan Inj) 0.4 mg UNSCH PRN IV 03/01/17 00:30 (Dilaudid Pf Inj) 0.5 mg Q4H PRN IV PUSH 03/01/17 05:15 03/01/17 05:51 (Lovenox Inj) 40 mg Q24H SQ 03/01/17 09:00 03/02/17 08:35 (Dilaudid) 2 mg Q4HR PRN PO 03/01/17 16:00 03/02/17 14:19 (KCl) 30 meq ONCE ONCE PO 03/02/17 17:00 03/02/17 17:01 Acetaminophen/ Butalbital/ Caffeine 1 tab 1 tab Q6H PRN PO 03/02/17 14:15 (Rocephin Inj/NS Inj) 100 ml @ 200 mls/hr Q12H IV 03/03/17 00:00 UNV Family History mother- copd father - cancer- lung maybe, went to liver and brain both parents- htn, lipid grandma- diverticulitis Social History smokes less than a pack a day drinks 3- 4 drinks a day, vodka with cranberry or soda or rum - have not had drink for 5 days Denies drugs but demonstrates drug seeking behavior. Knows meds by name and doses and asking to have IV instead of oral while in hospital. Physical Exam Vital Signs Vital Signs Date Time Temp Pulse Resp B/P Pulse Ox O2 Delivery O2 Flow Rate FiO2 03/02/17 12:45 96.2 72 22 127/63 95 03/02/17 11:39 16 03/02/17 08:49 98.1 73 22 130/70 96 03/02/17 04:00 98.4 70 20 116/74 98 03/02/17 02:13 95 03/02/17 00:00 98.7 71 20 98/56 96 03/01/17 20:00 100.3 80 20 100/55 94 03/01/17 15:08 15 Physical Exam GENERAL: This is a well-nourished, well-developed patient, in no apparent distress. SKIN: No rashes, ecchymoses or lesions. Cool and dry. Multiple tattoos none appear new. HEAD: Atraumatic. Normocephalic. No temporal or scalp tenderness. EYES: Pupils equal round and reactive. Extraocular motions intact. No scleral icterus. No injection or drainage. ENT: Nose without bleeding, purulent drainage or septal hematoma. Throat without erythema, tonsillar hypertrophy or exudate. Uvula midline. Airway patent. NECK: Trachea midline. Supple, nontender, no meningeal signs. CARDIOVASCULAR: RRR, ? systolic murmur. RESPIRATORY: Clear to auscultation. Breath sounds equal bilaterally. No wheezes , rales, or rhonchi. GASTROINTESTINAL: Abdomen soft, non-tender, nondistended. MUSCULOSKELETAL: Extremities without clubbing, cyanosis, or edema. NEUROLOGICAL: Awake and alert. Grossly non focal Psych: cooperative IV line sites with no e/o infection. Laboratory Laboratory Tests Test 03/02/17 06:23 White Blood Count 8.3 Red Blood Count 3.86 Hemoglobin 11.9 Hematocrit 36.0 Mean Corpuscular Volume 93.3 Mean Corpuscular Hemoglobin 30.8 Mean Corpuscular Hemoglobin 33.1 Concent Red Cell Distribution Width 14.4 Platelet Count 184 Mean Platelet Volume 9.4 Neutrophils (%) (Auto) 64.8 Lymphocytes (%) (Auto) 17.3 Monocytes (%) (Auto) 14.7 Eosinophils (%) (Auto) 2.7 Basophils (%) (Auto) 0.5 Neutrophils # (Auto) 5.4 Lymphocytes # (Auto) 1.4 Monocytes # (Auto) 1.2 Eosinophils # (Auto) 0.2 Basophils # (Auto) 0.0 CBC Comment DIFF FINAL Differential Comment Sodium Level 139 Potassium Level 3.2 Chloride Level 104 Carbon Dioxide Level 24.9 Anion Gap 10 Blood Urea Nitrogen 14 Creatinine 1.11 Estimat Glomerular Filtration 53 Rate Random Glucose 97 Calcium Level 7.2 Protein Corrected Calcium 8.0 Total Protein 5.6 Date/Time Procedure Status Source Growth 03/01/17 00:20 Aerobic Blood Culture - Preliminary Resulted Blood Peripheral Viridans Streptococcus Grp 03/01/17 00:20 Anaerobic Blood Culture - Preliminary Resulted Blood Peripheral NO GROWTH IN 1 DAY 02/28/17 23:35 Urine Culture - Final Complete Urine Random Urine Escherichia Coli Result Diagram: 03/02/17 0623 03/02/1723 Imaging Last Impressions Abdomen/Pelvis CT 02/28/17 8025 Signed Impressions: Service Date/Time: Tuesday, February 28, 2017 23:42 - CONCLUSION: 1. 2 mm proximal left ureteral stone. Mild hydronephrosis. 2. Bilateral 1 mm renal calculi. Freeman Mathews Jr., MD Assessment and Plan Assessment and Plan Sepsis present on admission Strep Viridans bacteremia ? Endocarditis (no Skin lesions, no oral lesions, no GI symptoms) E.coli UTI/Pyelonephritis with hydronephrosis and stone (Complicated): refuses urological procedures per note. ? may spontaneously pass it. Back pain: renal stone, ? epidural abscess. Systolic mumur new ? endocarditis. Acute renal failure: sepsis, renal stone, dehydration. Hypoalbuminemia. Recs: continue Ceftriaxone IV increase dose appears to be responding well to antibiotics based on fever and WBC trend. Check hepatitis profile Check HIV antibody screen (patient consented for it. last test 1 year back negative routine testing) Appreciate urology input. MRI Lumbar spine (r/o epidural abscess, discitis) MRI Thoracic spine (r/o epidural abscess, discitis) Follow cultures Follow clinically. addy pt and sister in room. Jennie Galloway RN, MD March 02, 2017 14:46 Jennie Ann MD March 02, 2017 14:46
--- NOTE | 2017-03-02 16:43 | RADRPT ---
EXAM DATE/TIME: 03/02/2017 16:09 [facility] COMPARISON: No previous studies available for comparison. INDICATIONS : Pneumonia. MEDICAL HISTORY : None. SURGICAL HISTORY : Hysterectomy. ENCOUNTER: Initial ACUITY: 1 day PAIN SCORE: 7/10 LOCATION: Bilateral chest FINDINGS: A single view of the chest demonstrates the lungs to be symmetrically aerated with right basilar and perihilar atelectasis. No effusion. Accounting for the low lung findings, the heart size still appear s to be borderline prominent. Osseous structures are intact. CONCLUSION: 1. Right perihilar and basilar atelectatic changes with no confluent infiltrate. 2. Borderline prominent but well compensated heart. Lenny Salamanca MD on March 02, 2017 at 16:39 Board Certified Radiologist. This report was verified electronically.
[2017-03-02] MEDS ORDERED: GADODIAMIDE PF 287 MG/ML 20 ML VIAL (for RAD MRI) IV ONE (19:08)
--- NOTE | 2017-03-02 19:14 | RADRPT ---
EXAM DATE/TIME: 03/02/2017 18:15 [facility] COMPARISON: No previous studies available for comparison. INDICATIONS : Discitis. Abcess. Back pain. CONTRAST: 19 cc Omniscan (gadodiamide) IV MEDICAL HISTORY : Hypertension. SURGICAL HISTORY : Hysterectomy. Cataract. ENCOUNTER: Subsequent ACUITY: 2 day PAIN SCORE: 6/10 LOCATION: mid back. TECHNIQUE: Multiplanar multisequence MRI of the thoracic spine was performed. FINDINGS: VERTEBRA: Normal vertebral body height. Homogeneous marrow signal. ALIGNMENT: Normal. CORD: Normal position and configuration. POST CONTRAST: No abnormal areas of contrast enhancement seen. T1-T2: Normal. T2-T3: The thecal sac has a normal diameter. No evidence of disc bulge or protrusion. T3-T4: The thecal sac has a normal diameter. No evidence of disc bulge or protrusion. T4-T5: The thecal sac has a normal diameter. No evidence of disc bulge or protrusion. T5-T6: The thecal sac has a normal diameter. No evidence of disc bulge or protrusion. T6-T7: The thecal sac has a normal diameter. No evidence of disc bulge or protrusion. T7-T8: Minimal broad right paracentral disc protrusion slightly indenting thecal sac in the lateral recess. No canal or foraminal compromise. T8-T9: The thecal sac has a normal diameter. No evidence of disc bulge or protrusion. T9-T10: The thecal sac has a normal diameter. No evidence of disc bulge or protrusion. T10-T11: The thecal sac has a normal diameter. No evidence of disc bulge or protrusion. T11-T12: The thecal sac has a normal diameter. No evidence of disc bulge or protrusion. T12-L1: The thecal sac has a normal diameter. No evidence of disc bulge or protrusion. CONCLUSION: Minimal disc protrusion at T7-8. Yunior Fernandez MD on March 02, 2017 at 19:09 Board Certified Radiologist. This report was verified electronically.
--- NOTE | 2017-03-02 20:02 | RADRPT ---
EXAM DATE/TIME: 03/02/2017 18:15 [facility] COMPARISON: No previous studies available for comparison. INDICATIONS : Discitis. Abcess. Back pain. CONTRAST: 19 cc Omniscan (gadodiamide) IV MEDICAL HISTORY : Hypertension. SURGICAL HISTORY : Hysterectomy. Cataracts. ENCOUNTER: Subsequent ACUITY: 2 day PAIN SCORE: 6/10 LOCATION: back. TECHNIQUE: Multiplanar multisequence MRI of the lumbar spine was performed with and without contrast. FINDINGS: The most caudal appearing lumbar vertebra is numbered as L5. VERTEBRAE: There is mild degenerative marrow signal change most notably adjacent to the L2-3 intervertebral disc . No suspicious marrow abnormalities. Bowing to suggest discitis or other acute bony or soft tissue p rocess. CONUS: Normal level and configuration. POST CONTRAST: No abnormal areas of contrast enhancement are seen. T12-L1: The thecal sac has a normal diameter. No evidence of disc bulge or protrusion. The neural foramina are patent bilaterally. L1-L2: Annular disc old with broad mild superimposed dorsal disc protrusion mildly indenting ventral thecal sac. Canal and foramina appear adequate. L2-L3: Mild annular disc bulge with slight brought superimposed dorsal protrusion slightly indenting ventral thecal sac. Canal and foramina satisfactory. L3-L4: Slight annular disc bulge. Canal and foramina satisfactory. L4-L5: Slight annular disc bulge. Canal and foramina satisfactory. L5-S1: The thecal sac has a normal diameter. No evidence of disc bulge or protrusion. The neural foramina are patent bilaterally. The mild bilateral posterior facet arthropathy. CONCLUSION: Degenerative disc changes throughout. No acute findings. Yunior Fernandez MD on March 02, 2017 at 19:56 Board Certified Radiologist. This report was verified electronically.
[2017-03-03] VITALS: BP 133/81; PULSE 79; RESP 20; TEMP 99; O2SAT 93
[2017-03-03] MEDS ORDERED: cefTRIAXone 2 GM PREMIX INJ 50 ML IV SCH
[2017-03-03] MEDS: cefTRIAXone INJ 2,000 MG in SODIUM CHLORIDE 0.9% INJ 100 ML IV SCH ×3 (00:31→23:06)
[2017-03-03] MEDS: ACETAMIN 325 MG/BUTALBITAL 50 MG/CAFFEINE 40 MG TAB PO PRN ×4 (00:33→18:08)
[2017-03-03] MEDS: HYDROmorphone HCL 2 MG TAB PO PRN ×6 (02:24→22:13)
[2017-03-03] MEDS: ONDANSETRON HCL 4 MG/2 ML VIAL IVP PRN ×3 (02:24→20:33)
[2017-03-03] MEDS: SODIUM CHLORIDE 0.9% FLUSH 10 ML FLUSH IV FLUSH PRN (02:24)
[2017-03-03 04:00] VITALS: BP 134/77; PULSE 62; RESP 20; TEMP 97.2; O2SAT 95
[2017-03-03 07:00] VITALS: BP 127/71; PULSE 64; RESP 18; TEMP 97; O2SAT 97
[2017-03-03 08:26] LABS: BICARBONATE 25.7 MEQ/L (21.0-32.0); POTASSIUM 3.8 MEQ/L (3.5-5.1)
[2017-03-03] MEDS: ENOXAPARIN SODIUM 40 MG/0.4 ML SYRINGE SQ SCH (08:30)
[2017-03-03] MEDS: SODIUM CHLORIDE 0.9% FLUSH 10 ML FLUSH IV FLUSH SCH ×2 (08:30→20:33)
--- NOTE | 2017-03-03 08:52 | HHI.PR ---
Subjective Remarks in no acute distress. has some back pain. remains afebrile. Objective Vitals Vital Signs Date Time Temp Pulse Resp B/P Pulse Ox O2 Delivery O2 Flow Rate FiO2 03/03/17 04:00 97.2 62 20 134/77 95 03/03/17 00:00 99.0 79 20 133/81 93 03/02/17 20:00 98.6 81 20 127/67 92 03/02/17 16:15 99.8 77 20 164/82 94 03/02/17 15:19 19 03/02/17 12:45 96.2 72 22 127/63 95 I/O 03/02/17 03/02/17 03/02/17 03/03/17 03/03/17 03/03/17 07:00 15:00 23:00 07:00 15:00 23:00 Intake Total 1169 ml 240 ml 240 ml Output Total 0 ml Balance 1169 ml 0 ml 240 ml 240 ml Intake Oral 360 ml 240 ml 240 ml IV Total 809 ml Stool Total 0 ml # Voids 4 1 1 # Bowel Movements 0 0 0 Result Diagram: 03/02/17 0623 03/03/17 0701 Imaging Last Impressions Thoracic Spine MRI 03/02/17 0000 Signed Impressions: Service Date/Time: February 18:15 - CONCLUSION: Minimal disc protrusion at T7-8. Yunior Fernandez MD Lumbar Spine MRI 03/02/17 0000 Signed Impressions: Service Date/Time: February 18:15 - CONCLUSION: Degenerative disc changes throughout. No acute findings. Yunior Fernandez MD Chest X-Ray 03/02/17 0000 Signed Impressions: Service Date/Time: February 16:09 - CONCLUSION: 1. Right perihilar and basilar atelectatic changes with no confluent infiltrate. 2. Borderline prominent but well compensated heart. Lenny Salamanca MD Abdomen/Pelvis CT 02/28/173 Signed Impressions: Service Date/Time: Tuesday, February 28, 2017 23:42 - CONCLUSION: 1. 2 mm proximal left ureteral stone. Mild hydronephrosis. 2. Bilateral 1 mm renal calculi. Freeman Mathews Jr., MD Objective Remarks GENERAL: This is a well-nourished, well-developed patient, in no apparent distress. CARDIOVASCULAR: Regular rate and regular rhythm without murmurs, gallops, or rubs. RESPIRATORY: Clear to auscultation. Breath sounds equal bilaterally. No wheezes , rales, or rhonchi. GASTROINTESTINAL: Abdomen soft, non-tender, nondistended. Normal, active bowel sounds MUSCULOSKELETAL: Extremities without clubbing, cyanosis, or edema. NEURO: Alert & Oriented x4 to person, place, time, situation. Moves all ext x4 Procedures none Medications and IVs Current Medications Ondansetron HCl (Zofran Inj) 4 mg ONCE ONCE IVP Last administered on 02/28/17 22:58; Start 02/28/17 at 22:15; Stop 02/28/17 at 22:16; Status DC Pantoprazole Sodium 40 mg 40 mg ONCE ONCE IVP Last administered on 02/28/17 22 :58; Start 02/28/17 at 22:15; Stop 02/28/17 at 22:16; Status DC Sodium Chloride (NS 1000 ml Inj) 1,000 ml @ 1,000 mls/hr Q1H IV Last administered on 02/28/17 22:58; Start 02/28/17 at 22:14; Stop 02/28/17 at 23:13; Status DC Sodium Chloride (NS Flush) 2 ml UNSCH PRN IV FLUSH FLUSH AFTER USING IV ACCESS Last administered on 02/28/17 22:59; Start 02/28/17 at 22:15; Stop 03/01/17 at 00 :27; Status DC Hydromorphone HCl (Dilaudid Pf Inj) 1 mg ONCE ONCE IVS Last administered on 22:59; Start 02/28/17 at 22:15; Stop 02/28/17 at 22:16; Status DC Al Hydrox/Mg Hydrox/Simethicone (Mag-Al Plus Susp Liq) 30 ml ONCE ONCE PO Last administered on 02/28/17 22:59; Start 02/28/17 at 22:15; Stop 02/28/17 at 22: 16; Status DC Lidocaine HCl 15 ml 15 ml ONCE ONCE PO Last administered on 02/28/17 22:59; Start 02/28/17 at 22:15; Stop 02/28/17 at 22:16; Status DC Sodium Chloride (NS 1000 ml Inj) 1,000 ml @ 1,000 mls/hr Q1H IV Last administered on 02/28/17 23:52; Start 02/28/17 at 23:16; Stop 03/01/17 at 00:15; Status DC Iohexol 70 ml 70 ml STK-MED ONCE IV Last administered on 02/28/17 23:43; Start 02/28/17 at 23:43; Stop 02/28/17 at 23:44; Status DC Sodium Chloride 1,000 ml @ 1,000 mls/hr Q1H IV Last administered on 03/01/17 00:38; Start 03/01/17 at 00:05; Stop 03/01/17 at 01:04; Status DC Ceftriaxone Sodium 1000 mg/ Sodium Chloride 100 ml @ 200 mls/hr ONCE ONCE IV Last administered on 03/01/17 00:50; Start 03/01/17 at 00:15; Stop 03/01/17 at 00:44; Status DC Sodium Chloride (NS 1000 ml Inj) 1,000 ml @ 100 mls/hr Q10H IV Last administered on 03/02/17 22:06; Start 03/01/17 at 00:23 Sodium Chloride (NS Flush) 2 ml UNSCH PRN IV FLUSH FLUSH AFTER USING IV ACCESS Last administered on 03/03/17 02:24; Start 03/01/17 at 00:30 Sodium Chloride (NS Flush) 2 ml BID IV FLUSH Last administered on 03/02/17 08: 34; Start 03/01/17 at 09:00 Ondansetron HCl (Zofran Inj) 4 mg Q6H PRN IVP NAUSEA OR VOMITING Last administered on 03/03/17 02:24; Start 03/01/17 at 00:30 Naloxone HCl (Narcan Inj) 0.4 mg UNSCH PRN IV SEE LABEL COMMENTS; Start at 00:30 Hydromorphone HCl (Dilaudid Pf Inj) 0.2 mg Q4H PRN IV PUSH pain >5 Last administered on 03/01/17 01:55; Start 03/01/17 at 01:30; Stop 03/01/17 at 05:07 ; Status DC Hydromorphone HCl 0.5 mg 0.5 mg Q4H PRN IV PUSH PAIN >5 Last administered on 05:51; Start 03/01/17 at 05:15 Ceftriaxone Sodium/Sodium Chloride (Rocephin Inj/NS Inj) 100 ml @ 200 mls/hr Q12H IV Last administered on 03/02/17 14:21; Start 03/01/17 at 12:00; Stop 09/08 at 14:50; Status DC Enoxaparin Sodium (Lovenox Inj) 40 mg Q24H SQ Last administered on 03/03/17 08 :30; Start 03/01/17 at 09:00 Hydromorphone HCl (Dilaudid) 2 mg Q6H PRN PO pain 6-10 Last administered on 14:08; Start 03/01/17 at 08:15; Stop 03/01/17 at 14:16; Status DC Hydromorphone HCl (Dilaudid) 2 mg Q4HR PRN PO pain 6-10 Last administered on 06:09; Start 03/01/17 at 16:00 Potassium Chloride (KCl) 30 meq ONCE ONCE PO Last administered on 03/02/17 14 :17; Start 03/02/17 at 12:30; Stop 03/02/17 at 12:43; Status DC Potassium Chloride (KCl) 30 meq ONCE ONCE PO Last administered on 03/02/17 18 :02; Start 03/02/17 at 17:00; Stop 03/02/17 at 17:01; Status DC Acetaminophen/ Butalbital/ Caffeine 1 tab 1 tab Q6H PRN PO HEADACHE Last administered on 03/03/17 06:08; Start 03/02/17 at 14:15 Ceftriaxone Sodium/Sodium Chloride (Rocephin Inj/NS Inj) 100 ml @ 200 mls/hr Q12H IV Last administered on 03/03/17 00:31; Start 03/03/17 at 00:00 Gadodiamide 19 ml 19 ml STK-MED ONCE IV Last administered on 03/02/17 19:08; Start 03/02/17 at 19:08; Stop 03/02/17 at 19:09; Status DC Ceftriaxone Sodium/Dextrose (Rocephin 2 Gm Premix Inj) 50 ml @ 100 mls/hr Q12H IV ; Start 03/03/17 at 00:00; Status Cancel A/P Assessment and Plan A/P Acute obstructive uropathy from renal stone with Sepsis due to UTI as the source - continue with IV antibiotic -UC with e-coli. -continue with pain control -urology evaluation appreciated; patient refused cystoscopy and stent placement. acute kidney injury likely due to obstructive uropathy-improved - continue IV fluid bacteremia with Viridans strep- - MRI of the thoracic and lumbar spine with no evidence of infection -blood cultures repeated today. -echo pending- -hepatitis panel and HIV serology pending- - continue antibiotic -ID consult appreciated. hypokalemia; replaced. Discharge Planning not ready for discharge. work-up in progress. Jean Claude Bhagat MD March 03, 2017 08:52
--- NOTE | 2017-03-03 10:18 | EC ---
Study Study Date:03/02/2017 STUDY CONCLUSIONS SUMMARY - Left ventricle: The cavity size was normal. Wall thickness was normal. Systolic function was normal. The estimated ejection fraction was in the range of 60% to 65%. Wall motion was normal; there were no regional wall motion abnormalities. - Aortic valve: Valve area: 2.68cm^2 (Vmax). If LV function is below 40, please consider prescribing an ACEI or ARB or document rationale for non-use. PROCEDURE DATA STUDY STATUS: Elective. Procedure: Transthoracic echocardiography. Image quality was poor. Scanning was performed from the parasternal, apical, and subcostal acoustic windows. Study completion: The patient tolerated the procedure well. Transthoracic echocardiography. M-mode, complete 2D, complete spectral Doppler, and color Doppler. Height: Height: 65in. Weight: Weight: 210.6lb. Body mass index: BMI: 35.1kg/m^2. Body surface area: BSA: 2.02m^2. Patient status: Inpatient. CARDIAC ANATOMY LEFT VENTRICLE: The cavity size was normal. Wall thickness was normal. Systolic function was normal. The estimated ejection fraction was in the range of 60% to 65%. Wall motion was normal; there were no regional wall motion abnormalities. AORTIC VALVE: Trileaflet; normal thickness leaflets. Doppler: Transvalvular velocity was within the normal range. There was no stenosis. No regurgitation. Valve area: 2.68cm^2 (Vmax). Indexed valve area: 1.33cm^2/m^2 (Vmax). Peak gradient: 11mm Hg (S). AORTA: Aortic root: The aortic root was normal in size. MITRAL VALVE: Mildly thickened leaflets, . Doppler: Transvalvular velocity was within the normal range. There was no evidence for stenosis. Trace to mild regurgitation. Valve area by pressure half-time: 4.4cm^2. Indexed valve area by pressure half-time: 2.18cm^2/m^2. Peak gradient: 3mm Hg (D). LEFT ATRIUM: The atrium was normal in size. RIGHT VENTRICLE: The cavity size was normal. Wall thickness was normal. PULMONIC VALVE: Doppler: Transvalvular velocity was within the normal range. There was no evidence for stenosis. No regurgitation. TRICUSPID VALVE: Structurally normal valve. Doppler: Transvalvular velocity was within the normal range. No regurgitation. Peak gradient: 18mm Hg (D). PULMONARY ARTERY: The main pulmonary artery was normal-sized. Systolic pressure was within the normal range. RIGHT ATRIUM: The atrium was normal in size. PERICARDIUM: There was no pericardial effusion. SYSTEMIC VEINS: Inferior vena cava: The vessel was normal in size. Patient weight: 210.6lb _Ejection fraction:_ 65-75% _Fractional shortening:_ 32% up to 5Kg 5-11.5Kg 11.6-22.9Kg 23-45Kg 45-57Kg Aortic Root 7-13 <17 13-22 17-27 17-27 LA diam 6-13 <23 24-38 33-47 37-40 RVID 10-17 7-15 7-15 7-18 8-17 LVIDd 12-22 <32 24-38 33-47 37-40 LVPW 2-4 3-6 5-7 6-8 7-8 IVS 2-4 3-6 5-7 6-8 7-8 BASIC MEASUREMENTS ADULT NORMAL Left ventricle LV internal dimension, ED, chordal *52.8 mm 43-52 level, PLAX LV internal dimension, ES, chordal 37.4 mm 23-38 level, PLAX Fractional shortening, chordal level, *29 % >29 PLAX LV posterior wall thickness, ED 10.9 mm IVS/LVPW ratio, ED 1 <1.3 Volume, ED, MOD, 1-plane 86 ml Volume, ES, MOD, 1-plane 32 ml Ejection fraction, MOD, 1-plane 63 % Stroke volume, MOD, 1-plane 54 ml Volume index, ED, MOD, 1-plane 43 ml/m^2 Volume index, ES, MOD, 1-plane 16 ml/m^2 Stroke index, MOD, 1-plane 26.7 ml/m^2 Ventricular septum Septal thickness, ED 10.9 mm Aortic valve Leaflet separation 20 mm 15-26 Left atrium Anterior-posterior dimension 39 mm Anterior-posterior dimension index 1.93 cm/m^2 <2.2 Right ventricle RV internal dimension, ED, PLAX 22.8 mm 19-38 BASIC MEASUREMENTS ADULT NORMAL Aortic valve Leaflet separation 20 mm 15-26 Aorta Root diameter, ED 26 mm 20-37 DOPPLER MEASUREMENTS ADULT NORMAL Aortic valve Peak velocity, S 164 cm/s Peak gradient, S 11 mm Hg Valve area, Vmax 2.68 cm^2 Valve area index, Vmax 1.33 cm^2/m^2 Mitral valve Peak E-wave velocity 81.4 cm/s Peak A-wave velocity 70.6 cm/s Pressure half-time 50 ms Peak gradient, D 3 mm Hg Peak E/A ratio 1.2 Valve area, pressure half-time 4.4 cm^2 Valve area index, pressure half-time 2.18 cm^2/m^2 Tricuspid valve Peak gradient, D 18 mm Hg Maximal inflow velocity 198 cm/s Pulmonic valve Peak velocity, S 81.4 cm/s LEGEND: Mean values are shown as u=mean value. Asterisk (*) grossman values outside specified normal range. Prepared and signed by Payam Burrell [id number]
[2017-03-03] MEDS ORDERED: Vancomycin Consult Pharmacy 1 EA OTHER SCH (11:15)
[2017-03-03] MEDS: SODIUM CHLOR 0.9% 1000 ML INJ 1,000 ML IV SCH (11:45)
[2017-03-03 12:00] VITALS: BP 129/76; PULSE 66; RESP 18; TEMP 97.8; O2SAT 97
[2017-03-03] MEDS ORDERED: VANCOMYCIN INJ 2,000 MG in SODIUM CHLORID 0.9% 500 ML INJ 500 ML IV ONE (12:00)
[2017-03-03] MEDS: HYDROmorphone HCL PF 1 MG/ML VIAL IV PUSH PRN ×2 (15:57→20:32)
[2017-03-03 16:00] VITALS: BP 140/96; PULSE 75; RESP 18; TEMP 97.3; O2SAT 98
[2017-03-03] MEDS ORDERED: ONDANSETRON HCL 4 MG/2 ML VIAL IV PUSH ONE (16:45)
--- NOTE | 2017-03-03 19:14 | HHI.PR ---
Addendum to Inpatient Note Addendum Reason: Additional Documentation Additional Information If repeat blood cultures from 03/03/17 remain negative at 72 hrs will consider discharge home on oral antibiotics. Will follow next on Monday. If any new information on cultures or change in clinical condition please call ID systems development consultant. covering for me this weekend. Jennie Ann MD March 03, 2017 19:14
[2017-03-03 20:00] VITALS: BP 167/79; PULSE 74; RESP 18; TEMP 97.9; O2SAT 92
[2017-03-04] VITALS: BP 153/77; PULSE 69; RESP 18; TEMP 97.2; O2SAT 93
[2017-03-04] MEDS ORDERED: VANCOMYCIN INJ 1,250 MG in SODIUM CHLOR 0.9% 250 ML INJ 250 ML IV SCH ×2
[2017-03-04] MEDS: HYDROmorphone HCL PF 1 MG/ML VIAL IV PUSH PRN ×6 (00:16→20:35)
[2017-03-04] MEDS: ACETAMIN 325 MG/BUTALBITAL 50 MG/CAFFEINE 40 MG TAB PO PRN ×3 (00:17→20:36)
[2017-03-04] MEDS: HYDROmorphone HCL 2 MG TAB PO PRN ×4 (03:10→18:19)
[2017-03-04] MEDS: ONDANSETRON HCL 4 MG/2 ML VIAL IVP PRN ×3 (03:10→20:35)
[2017-03-04] MEDS: SODIUM CHLORIDE 0.9% FLUSH 10 ML FLUSH IV FLUSH PRN (03:11)
[2017-03-04 04:00] VITALS: BP 140/74; PULSE 63; RESP 18; TEMP 97.1; O2SAT 95
[2017-03-04] MEDS: SODIUM CHLOR 0.9% 1000 ML INJ 1,000 ML IV SCH ×2 (04:41→08:44)
[2017-03-04 08:00] VITALS: BP 149/81; PULSE 78; RESP 18; TEMP 97.6; O2SAT 94
[2017-03-04] MEDS: SODIUM CHLORIDE 0.9% FLUSH 10 ML FLUSH IV FLUSH SCH ×2 (08:44→20:36)
[2017-03-04] MEDS: ENOXAPARIN SODIUM 40 MG/0.4 ML SYRINGE SQ SCH (08:45)
--- NOTE | 2017-03-04 11:58 | HHI.PR ---
Subjective Remarks Follow-up uropathy with obstruction/sepsis 03/04/17-patient seen and examined, denies any significant flank pain and currently afebrile. Repeat culture negative to date. Objective Vitals Vital Signs Date Time Temp Pulse Resp B/P Pulse Ox O2 Delivery O2 Flow Rate FiO2 03/04/17 08:00 97.6 78 18 149/81 94 03/04/17 04:00 97.1 63 18 140/74 95 03/04/17 00:00 97.2 69 18 153/77 93 03/03/17 20:00 97.9 74 18 167/79 92 03/03/17 18:52 20 03/03/17 18:51 20 03/03/17 16:49 18 03/03/17 16:00 97.3 75 18 140/96 98 03/03/17 12:00 97.8 66 18 129/76 97 I/O 03/03/17 03/03/17 03/03/17 03/04/17 03/04/17 03/04/17 07:00 15:00 23:00 07:00 15:00 23:00 Intake Total 240 ml 480 ml Balance 240 ml 480 ml Intake Oral 240 ml 480 ml # Voids 1 4 6 # Bowel Movements 0 1 Result Diagram: 03/02/17 0623 03/03/17 0701 Imaging Last Impressions Thoracic Spine MRI 03/02/17 0000 Signed Impressions: Service Date/Time: February 18:15 - CONCLUSION: Minimal disc protrusion at T7-8. Yunior Fernandez MD Lumbar Spine MRI 03/02/17 0000 Signed Impressions: Service Date/Time: February 18:15 - CONCLUSION: Degenerative disc changes throughout. No acute findings. Yunior Fernandez MD Chest X-Ray 03/02/17 0000 Signed Impressions: Service Date/Time: February 16:09 - CONCLUSION: 1. Right perihilar and basilar atelectatic changes with no confluent infiltrate. 2. Borderline prominent but well compensated heart. Lenny Salamanca MD Abdomen/Pelvis CT 02/28/17 2223 Signed Impressions: Service Date/Time: Tuesday, February 28, 2017 23:42 - CONCLUSION: 1. 2 mm proximal left ureteral stone. Mild hydronephrosis. 2. Bilateral 1 mm renal calculi. Freeman Mathews Jr., MD Objective Remarks GENERAL: NAD SKIN: Warm and dry. HEAD: Normocephalic. EYES: No scleral icterus. No injection or drainage. NECK: Supple, trachea midline. No JVD or lymphadenopathy. CARDIOVASCULAR: Regular rate and rhythm without murmurs, gallops, or rubs. RESPIRATORY: Breath sounds equal bilaterally. No accessory muscle use. GASTROINTESTINAL: Abdomen soft, non-tender, nondistended. MUSCULOSKELETAL: No cyanosis, or edema. BACK: Nontender without obvious deformity. No CVA tenderness. Procedures none A/P Problem List: (1) Sepsis ICD Code: A41.9 Status: Acute (2) Pyelonephritis ICD Code: N12 Status: Acute (3) Acute kidney injury ICD Code: N17.9 Status: Acute (4) Bacteremia due to Gram-negative bacteria ICD Code: R78.81 Status: Acute Assessment and Plan 46 year-old female with Acute obstructive uropathy from renal stone with Sepsis due to UTI-Escherichia coli as the source -continue with IV antibiotics including Rocephin and vancomycin ending repeat blood culture NTD. Appreciate input from urology -continue with pain control -urology evaluation appreciated; patient refused cystoscopy and stent placement. Acute kidney injury likely due to obstructive uropathy-resolved, HLIV bacteremia with Viridans strep- - MRI of the thoracic and lumbar spine with no evidence of infection -Repeat blood culture NTD -echo with no vegetation -hepatitis panel and HIV serology negative -Continue with vancomycin IV -ID consult appreciated. hypokalemia; replaced. Problem Qualifiers (1) Sepsis: Qualified Code: A41.9 - Sepsis, due to unspecified organism Arya Connors MD March 04, 2017 11:58
[2017-03-04 12:00] VITALS: BP 140/86; PULSE 76; RESP 19; TEMP 98.2; O2SAT 95
[2017-03-04] MEDS: cefTRIAXone INJ 2,000 MG in SODIUM CHLORIDE 0.9% INJ 100 ML IV SCH (12:34)
[2017-03-04] MEDS: VANCOMYCIN 1,500 MG/NS 500 ML IV SCH ×2 (13:22)
[2017-03-04 16:00] VITALS: BP 151/78; PULSE 80; RESP 18; TEMP 97.8; O2SAT 96
[2017-03-04 20:00] VITALS: BP 121/70; PULSE 64; RESP 20; TEMP 96.6; O2SAT 94
[2017-03-04] MEDS: LACTOBACILLUS ACIDOPHILUS TAB PO SCH (20:35)
[2017-03-05] VITALS: BP 125/62; PULSE 68; RESP 20; TEMP 97.6; O2SAT 94
[2017-03-05] MEDS: cefTRIAXone INJ 2,000 MG in SODIUM CHLORIDE 0.9% INJ 100 ML IV SCH ×3 (00:50→23:25)
[2017-03-05] MEDS: HYDROmorphone HCL PF 1 MG/ML VIAL IV PUSH PRN ×4 (00:51→20:32)
[2017-03-05] MEDS: SODIUM CHLORIDE 0.9% FLUSH 10 ML FLUSH IV FLUSH PRN (00:51)
[2017-03-05] MEDS: VANCOMYCIN 1,500 MG/NS 500 ML IV SCH ×4 (00:55→11:46)
[2017-03-05] MEDS: HYDROmorphone HCL 2 MG TAB PO PRN ×4 (02:30→22:28)
[2017-03-05 04:00] VITALS: BP 133/71; PULSE 56; RESP 20; TEMP 99.6; O2SAT 96
[2017-03-05] MEDS: ACETAMIN 325 MG/BUTALBITAL 50 MG/CAFFEINE 40 MG TAB PO PRN (05:49)
[2017-03-05] MEDS: ONDANSETRON HCL 4 MG/2 ML VIAL IVP PRN ×2 (05:49→17:22)
[2017-03-05 08:00] VITALS: BP 132/69; PULSE 80; RESP 18; TEMP 97.7; O2SAT 98
[2017-03-05] MEDS: SODIUM CHLORIDE 0.9% FLUSH 10 ML FLUSH IV FLUSH SCH ×2 (08:29→20:31)
[2017-03-05] MEDS: LACTOBACILLUS ACIDOPHILUS TAB PO SCH ×2 (08:29→20:31)
[2017-03-05] MEDS: ENOXAPARIN SODIUM 40 MG/0.4 ML SYRINGE SQ SCH (08:29)
--- NOTE | 2017-03-05 09:47 | HHI.PR ---
Subjective Remarks Follow-up uropathy with obstruction/sepsis 03/04/17-patient seen and examined, denies any significant flank pain and currently afebrile. Repeat culture negative to date. 03/05/17-patient seen and examined. No acute event overnight. Afebrile. No significant flank pain. Objective Vitals Vital Signs Date Time Temp Pulse Resp B/P Pulse Ox O2 Delivery O2 Flow Rate FiO2 03/05/17 08:00 97.7 80 18 132/69 98 03/05/17 04:00 99.6 56 20 133/71 96 03/05/17 00:00 97.6 68 20 125/62 94 03/04/17 20:00 96.6 64 20 121/70 94 03/04/17 16:00 97.8 80 18 151/78 96 03/04/17 12:00 98.2 76 19 140/86 95 I/O 03/04/17 03/04/17 03/04/17 03/05/17 03/05/17 03/05/17 07:00 15:00 23:00 07:00 15:00 23:00 Intake Total 240 ml 240 ml Balance 240 ml 240 ml Intake Oral 240 ml 240 ml # Voids 6 1 1 # Bowel Movements 1 0 0 Result Diagram: 03/02/17 0623 03/03/17 0701 Objective Remarks GENERAL: NAD SKIN: Warm and dry. HEAD: Normocephalic. EYES: No scleral icterus. No injection or drainage. NECK: Supple, trachea midline. No JVD or lymphadenopathy. CARDIOVASCULAR: Regular rate and rhythm without murmurs, gallops, or rubs. RESPIRATORY: Breath sounds equal bilaterally. No accessory muscle use. GASTROINTESTINAL: Abdomen soft, non-tender, nondistended. MUSCULOSKELETAL: No cyanosis, or edema. BACK: Nontender without obvious deformity. No CVA tenderness. Procedures none A/P Problem List: (1) Sepsis ICD Code: A41.9 Status: Acute (2) Pyelonephritis ICD Code: N12 Status: Acute (3) Acute kidney injury ICD Code: N17.9 Status: Acute (4) Bacteremia due to Gram-negative bacteria ICD Code: R78.81 Status: Acute Assessment and Plan 46 year-old female with Acute obstructive uropathy from renal stone with Sepsis due to UTI-Escherichia coli as the source -continue with IV antibiotics including Rocephin and vancomycin pending repeat blood culture NTD. Appreciate input from urology -continue with pain control -urology evaluation appreciated; patient refused cystoscopy and stent placement. Acute kidney injury likely due to obstructive uropathy-resolved, HLIV bacteremia with Viridans strep- - MRI of the thoracic and lumbar spine with no evidence of infection -Repeat blood culture NTD -echo with no vegetation -hepatitis panel and HIV serology negative -Continue with vancomycin IV -ID consult appreciated. hypokalemia; replaced. DVT prophylaxis: Bilateral SCDs Discharge Planning Likely discharge 03/06/17 Problem Qualifiers (1) Sepsis: Qualified Code: A41.9 - Sepsis, due to unspecified organism Arya Connors MD March 05, 2017 09:47
[2017-03-05] MEDS ORDERED: PHARMACY ORDERED LAB ONE (11:45)
[2017-03-05 12:00] VITALS: BP 166/87; PULSE 55; RESP 18; TEMP 96.2; O2SAT 96
[2017-03-05 16:00] VITALS: BP 148/74; PULSE 74; RESP 19; TEMP 97.8; O2SAT 96
[2017-03-05 20:00] VITALS: BP 169/77; PULSE 58; RESP 20; TEMP 97.2; O2SAT 94
[2017-03-06] VITALS: BP 141/77; PULSE 57; RESP 20; TEMP 96.7; O2SAT 97
[2017-03-06] MEDS ORDERED: VANCOMYCIN INJ 1,250 MG in SODIUM CHLOR 0.9% 250 ML INJ 250 ML IV SCH ×2
[2017-03-06] MEDS: ONDANSETRON HCL 4 MG/2 ML VIAL IVP PRN (01:29)
[2017-03-06] MEDS: HYDROmorphone HCL PF 1 MG/ML VIAL IV PUSH PRN ×2 (01:29→07:07)
[2017-03-06 04:00] VITALS: BP 136/74; PULSE 60; RESP 20; TEMP 96.9; O2SAT 96
[2017-03-06] MEDS: LACTOBACILLUS ACIDOPHILUS TAB PO SCH (07:57)
[2017-03-06] MEDS: SODIUM CHLORIDE 0.9% FLUSH 10 ML FLUSH IV FLUSH SCH (07:58)
[2017-03-06] MEDS: HYDROmorphone HCL 2 MG TAB PO PRN (07:58)
[2017-03-06 08:00] VITALS: BP 185/81; PULSE 58; RESP 20; TEMP 96.8; O2SAT 94
[2017-03-06] MEDS ORDERED: ULTR50TA5 PO ×2 (09:18→09:20)
[2017-03-06] MEDS ORDERED: LEVA750T PO (09:18)
[2017-03-06] MEDS ORDERED: CLIN1CAP5 PO (09:18)
[2017-03-06] MEDS ORDERED: ZOFR4TAB PO (09:49)
--- NOTE | 2017-03-06 09:51 | HHI.PR ---
Subjective Remarks Follow-up uropathy with obstruction/sepsis 03/04/17-patient seen and examined, denies any significant flank pain and currently afebrile. Repeat culture negative to date. 03/05/17-patient seen and examined. No acute event overnight. Afebrile. No significant flank pain. 03/06/17-patient seen and examined, still complained of left-sided flank pain. Afebrile. Repeat blood culture negative 3 to date Objective Vitals Vital Signs Date Time Temp Pulse Resp B/P Pulse Ox O2 Delivery O2 Flow Rate FiO2 03/06/17 08:00 96.8 58 20 185/81 94 03/06/17 04:00 96.9 60 20 136/74 96 03/06/17 00:00 96.7 57 20 141/77 97 03/05/17 20:00 97.2 58 20 169/77 94 03/05/17 16:00 97.8 74 19 148/74 96 03/05/17 12:00 96.2 55 18 166/87 96 I/O 03/05/17 03/05/17 03/05/17 03/06/17 03/06/17 03/06/17 07:00 15:00 23:00 07:00 15:00 23:00 Intake Total 240 ml 240 ml 120 ml Balance 240 ml 240 ml 120 ml Intake Oral 240 ml 240 ml 120 ml # Voids 1 1 2 # Bowel Movements 0 0 0 Result Diagram: 03/02/17 0623 03/06/17 0540 Imaging Last Impressions Thoracic Spine MRI 03/02/17 0000 Signed Impressions: Service Date/Time: February 18:15 - CONCLUSION: Minimal disc protrusion at T7-8. Yunior Fernandez MD Lumbar Spine MRI 03/02/17 0000 Signed Impressions: Service Date/Time: February 18:15 - CONCLUSION: Degenerative disc changes throughout. No acute findings. Yunior Fernandez MD Chest X-Ray 03/02/17 0000 Signed Impressions: Service Date/Time: February 16:09 - CONCLUSION: 1. Right perihilar and basilar atelectatic changes with no confluent infiltrate. 2. Borderline prominent but well compensated heart. Lenny Salamanca MD Abdomen/Pelvis CT 02/28/17 2343 Signed Impressions: Service Date/Time: Tuesday, February 28, 2017 23:42 - CONCLUSION: 1. 2 mm proximal left ureteral stone. Mild hydronephrosis. 2. Bilateral 1 mm renal calculi. Freeman Mathews Jr., MD Objective Remarks GENERAL: NAD SKIN: Warm and dry. HEAD: Normocephalic. EYES: No scleral icterus. No injection or drainage. NECK: Supple, trachea midline. No JVD or lymphadenopathy. CARDIOVASCULAR: Regular rate and rhythm without murmurs, gallops, or rubs. RESPIRATORY: Breath sounds equal bilaterally. No accessory muscle use. GASTROINTESTINAL: Abdomen soft, non-tender, nondistended. MUSCULOSKELETAL: No cyanosis, or edema. BACK: Nontender without obvious deformity. No CVA tenderness. Procedures none A/P Problem List: (1) Sepsis ICD Code: A41.9 Status: Acute (2) Pyelonephritis ICD Code: N12 Status: Acute (3) Acute kidney injury ICD Code: N17.9 Status: Acute (4) Bacteremia due to Gram-negative bacteria ICD Code: R78.81 Status: Acute Assessment and Plan 46 year-old female with Acute obstructive uropathy from renal stone with Sepsis due to UTI-Escherichia coli as the source -continue with IV antibiotics including Rocephin and vancomycin ; repeat blood culture NTD. Will discharge patient on by mouth Levaquin 750 mg daily 2 weeks as well as clindamycin 400 mg by mouth 3 times a day 2 weeks. Appreciate input from urology -continue with pain control -urology evaluation appreciated; patient refused cystoscopy and stent placement. Acute kidney injury likely due to obstructive uropathy-resolved, HLIV bacteremia with Viridans strep- - MRI of the thoracic and lumbar spine with no evidence of infection -Repeat blood culture NTD -echo with no vegetation -hepatitis panel and HIV serology negative -Continue with vancomycin IV -ID consult appreciated. hypokalemia; replaced. DVT prophylaxis: Bilateral SCDs Discharge Planning Likely discharge 03/06/17 Problem Qualifiers (1) Sepsis: Qualified Code: A41.9 - Sepsis, due to unspecified organism Arya Connors MD March 06, 2017 09:51
--- NOTE | 2017-03-06 09:55 | HHI.DS ---
Discharge Summary Admission Date March 01, 2017 at 00:26 Discharge Date: March 06, 2017 Admitting Diagnosis pyelonephritis, left ureteral stone, KOJO, sepsis (1) Sepsis ICD Code: A41.9 (2) Pyelonephritis ICD Code: N12 (3) Acute kidney injury ICD Code: N17.9 (4) Bacteremia due to Gram-negative bacteria ICD Code: R78.81 Procedures none Brief History - From Admission History from patient, ER provider communication, and review of medical records. Patient reported that the past few days, she was having flulike symptoms with body aches. She states she did have some fever but she did not measure it though. Also reports of nausea, vomiting, difficulty breathing. Has associated abdominal pain and back pains. Denies any blood in her urine or in her stool. She states that her left back pain is worse Denies burning urination or pain on urination. Apart from the above, patient denies any other symptoms such as chest pain/ palpitations/shortness of breath/syncopal episodes. CBC/BMP: 03/02/17 0623 03/06/17 0540 Significant Findings Laboratory Tests Test 03/05/17 03/06/17 11:45 05:40 Vancomycin Level Trough 21.6 MCG/ML (5.0-10.0) Estimat Glomerular Filtration 81 ML/MIN (>89) Rate Imaging Last Impressions Thoracic Spine MRI 03/02/17 0000 Signed Impressions: Service Date/Time: February 18:15 - CONCLUSION: Minimal disc protrusion at T7-8. Yunior Fernandez MD Lumbar Spine MRI 03/02/17 0000 Signed Impressions: Service Date/Time: February 18:15 - CONCLUSION: Degenerative disc changes throughout. No acute findings. Yunior Fernandez MD Chest X-Ray 03/02/17 0000 Signed Impressions: Service Date/Time: February 16:09 - CONCLUSION: 1. Right perihilar and basilar atelectatic changes with no confluent infiltrate. 2. Borderline prominent but well compensated heart. Lenny Salamanca MD Abdomen/Pelvis CT 02/28/17 2223 Signed Impressions: Service Date/Time: Tuesday, February 28, 2017 23:42 - CONCLUSION: 1. 2 mm proximal left ureteral stone. Mild hydronephrosis. 2. Bilateral 1 mm renal calculi. Freeman Mathews Jr., MD PE at Discharge GENERAL: NAD SKIN: Warm and dry. HEAD: Normocephalic. EYES: No scleral icterus. No injection or drainage. NECK: Supple, trachea midline. No JVD or lymphadenopathy. CARDIOVASCULAR: Regular rate and rhythm without murmurs, gallops, or rubs. RESPIRATORY: Breath sounds equal bilaterally. No accessory muscle use. GASTROINTESTINAL: Abdomen soft, non-tender, nondistended. MUSCULOSKELETAL: No cyanosis, or edema. BACK: Nontender without obvious deformity. No CVA tenderness. Hospital Course Patient admitted secondary to Acute obstructive uropathy from renal stone with Sepsis due to UTI-Escherichia coli for which she was started on IV antibiotics with consultation to infectious disease specialist as well as urology. Patient did refuse cystoscopy along with possible plan for stent placement. Hospitalization was complicated by bacteremia, however patient continue with IV antibiotics which were suture accordingly by infectious disease specialist. Repeat blood culture prior to discharge was negative 3. All electrolyte abnormalities including hypokalemia were replaced accordingly. Renal function improved with aggressive IV fluid hydration. DVT and GI prophylaxis were provided. She will be discharged on by mouth Levaquin 750 mg daily 2 weeks and clindamycin 450 mg 3 times a day 2 weeks as well. Patient will need follow -up with urology in 6 weeks Pt Condition on Discharge: Stable Discharge Disposition: Discharge Home Discharge Time: > 30 minutes Discharge Instructions DIET: Follow Instructions for: Heart Healthy Diet Activities you can perform: Regular-No Restrictions Follow up Referrals: PCP Follow-up - 1 Week Urology - 6 Weeks New Medications: Clindamycin (Clindamycin) 150 Mg Cap 450 MG PO Q8HR Infection #42 Ref 0 CAP Levofloxacin (Levaquin) 750 Mg Tab 750 MG PO DAILY Infection #14 Ref 0 TAB Ondansetron (Zofran) 4 Mg Tab 4 MG PO Q8HR PRN NAUSEA OR VOMITING #20 Ref 0 TAB Tramadol (Ultram) 50 Mg Tab 50 MG PO Q8H PRN PAIN #30 Ref 0 TAB Additional Information I Spent over 30 minutes going over the discharge for this patient Arya Connors MD March 06, 2017 09:55
[2017-03-07] MEDS ORDERED: PHARMACY ORDERED LAB ONE (11:45)
== END 2017-03-06 10:38 | disposition home or self-care (01) | DRG 872 ==
LOC: NEPD 21:09 → NEDA 03-01 00:26 → N05B 03-01 02:09
PROVIDERS: ADMIT Hospitalist; ATTEND Hospitalist
DX: A41.9 Sepsis, unspecified organism (principal); N17.9 Acute kidney failure, unspecified; N13.6 Pyonephrosis; E88.09 Other disorders of plasma-protein metabolism, not elsewhere classified; F17.210 Nicotine dependence, cigarettes, uncomplicated; H54.8 Legal blindness, as defined in USA; E78.5 Hyperlipidemia, unspecified; I10 Essential (primary) hypertension; Z90.710 Acquired absence of both cervix and uterus; B96.20 Unspecified Escherichia coli [E. coli] as the cause of diseases classified elsewhere; E86.0 Dehydration; B96.89 Other specified bacterial agents as the cause of diseases classified elsewhere; B95.4 Other streptococcus as the cause of diseases classified elsewhere; E87.6 Hypokalemia; Z53.29 Procedure and treatment not carried out because of patient's decision for other reasons
CPT/HCPCS: 71010; 72157; 72158; 74177; 76937; 80048; 80053; 80074; 80202; 81001; 82565; 83605; 83690; 84155; 85007; 85025; 85027; 86140; 86403; 86703; 87040; 87077; 87086; 87186; 87205; 93306; 96361; 96374; 96375; A9579; C9113; J0696; J1170; J1650; J2405; J3370; J7030; J7040; J7050; Q9967

== ENCOUNTER 2017-03-10 22:02 | Emergency (ER) | payer MEDICAID, MEDICARE ==
[~2017-03-10] VITALS: Ht 165.1 cm; Wt 82.0 kg
[~2017-03-10 22:02] MED LIST: CLIN1CAP5 PO; LEVA750T PO; ULTR50TA5 PO; ZOFR4TAB PO
[2017-03-10 22:06] VITALS: BP 159/88; PULSE 92; RESP 18; TEMP 98.5; O2SAT 99
[2017-03-10] MEDS ORDERED: SODIUM CHLOR 0.9% 1000 ML INJ 1,000 ML IV SCH (23:17)
[2017-03-10] MEDS ORDERED: SODIUM CHLORIDE 0.9% FLUSH 10 ML FLUSH IV FLUSH PRN (23:30)
[2017-03-10] MEDS ORDERED: ONDANSETRON HCL 4 MG/2 ML VIAL IVP ONE (23:30)
[2017-03-10] MEDS ORDERED: KETOROLAC TROMETHAMINE 30 MG/ML (IVP) VIAL IVP ONE (23:30)
[2017-03-10] MEDS ORDERED: HYDROmorphone HCL PF 1 MG/ML VIAL IVS ONE (23:30)
[2017-03-10 23:43] LABS: AUTOMATED NEUTROPHIL # 9.3 TH/MM3 (1.8-7.7); BASOPHIL # 0.1 TH/MM3 (0-0.2); BASOPHIL % 1.1 % (0.0-2.0); EOSINOPHIL # 0.1 TH/MM3 (0-0.4); EOSINOPHIL % 0.9 % (0.0-4.0); HEMATOCRIT 44.5 % (35.0-46.0); HEMO FLAGS DIFF FINAL; LYMPH % 16.5 % (9.0-44.0); MEAN CELL VOLUME 90.4 FL (80.0-100.0); MEAN CORPUSCULAR HEMOGLOBIN 30.2 PG (27.0-34.0); MEAN CORPUSCULAR HGB CONC 33.4 % (32.0-36.0); MONO % 5.5 % (0.0-8.0); PLATELET COUNT 617 TH/MM3 (150-450); RED BLOOD COUNT 4.93 MIL/MM3 (4.00-5.30); RED CELL DISTRIBUTION WIDTH 14.3 % (11.6-17.2); WHITE BLOOD COUNT 12.3 TH/MM3 (4.0-11.0)
--- NOTE | 2017-03-10 23:44 | PD ---
HPI Chief Complaint: Abdominal Pain Time Seen by Provider: 23:09 Travel History International Travel<30 days: No Contact w/Intl Traveler<30days: No Traveled to known affect area: No History of Present Illness HPI 46-year-old female arrives with left upper quadrant pain that radiates to the left flank. She's had it since she was discharged from the ER 4 days ago. She was discharged with Levaquin and clindamycin for a pyelonephritis however she was unable tolerate it due to side effects including nausea and vomiting. Her appetite has been decreased in the past several days. She notes dark urine. She's had nausea vomiting and diarrhea about 3-4 episodes at over the last 24 hours. She states the pain has just been gradually increasing. She denies fever. PFSH Past Medical History Arthritis: Yes (In lower back) Autoimmune Disease: No Cancer: No Cardiovascular Problems: Yes (HTN) Endocrine: No Hypertension: Yes Immune Disorder: No Kidney Stones: Yes Musculoskeletal: Yes Neurologic: No Psychiatric: No Reproductive: Yes Respiratory: No Tetanus Vaccination: < 5 Years Influenza Vaccination: Yes ?: Not Past Surgical History Eye Surgery: Yes (Cataract Sx) Gynecologic Surgery: Yes (Total Hysterectomy 2004) Hysterectomy: Yes Other Surgery: Yes Social History Alcohol Use: Yes (occassional) Tobacco Use: Yes Substance Use: No Allergies-Medications (Allergen,Severity, Reaction): Coded Allergies: Morphine (Verified Allergy, Intermediate, 03/10/17) Sulfa (Verified Allergy, Intermediate, 03/10/17) Reported Meds & Prescriptions Reported Meds & Active Scripts Active Flomax (Tamsulosin HCl) 0.4 Mg Cap 0.4 Mg PO HS Lortab (Hydrocodone-Acetaminophen) 5-325 Mg Tab 1-2 Tab PO Q6H PRN Review of Systems Except as stated in HPI: all other systems reviewed are Neg General / Constitutional: No: Fever Physical Exam Narrative GENERAL: 46-year-old female well-nourished well-developed no acute distress SKIN: Focused skin assessment warm/dry. HEAD: Atraumatic. Normocephalic. EYES: Pupils equal and round. No scleral icterus. No injection or drainage. ENT: No nasal bleeding or discharge. Mucous membranes pink and moist. NECK: Trachea midline. No JVD. CARDIOVASCULAR: Regular rate and rhythm. No murmur appreciated. RESPIRATORY: No accessory muscle use. Clear to auscultation. Breath sounds equal bilaterally. GASTROINTESTINAL: Soft. No marked tenderness about the abdomen. MUSCULOSKELETAL: No obvious deformities. No clubbing. No cyanosis. No edema. NEUROLOGICAL: Awake and alert. No obvious cranial nerve deficits. Motor grossly within normal limits. Normal speech. PSYCHIATRIC: Appropriate mood and affect; insight and judgment normal. Data Data Last Documented VS Vital Signs Date Time Temp Pulse Resp B/P Pulse Ox O2 Delivery O2 Flow Rate FiO2 03/11/17 00:50 67 18 128/60 94 Room Air 03/10/17 22:06 98.5 Vital signs reviewed Orders Complete Blood Count With Diff (03/10/17 23:17) Comprehensive Metabolic Panel (03/10/17:17) Lipase (03/10/17:) Urinalysis - C+S If Indicated (03/10/17 23:17) Iv Access Insert/Monitor (03/10/17 23:17) Ecg Monitoring (03/10/17:) Oximetry (03/10/17:) Ondansetron Inj (Zofran Inj) (03/10/17 23:30) Sodium Chlor 0.9% 1000 Ml Inj (Ns 1000 M (03/10/17 23:17) Sodium Chloride 0.9% Flush (Ns Flush) (03/10/17 23:30) Ketorolac Inj (Toradol Inj) (03/10/17 23:30) Hydromorphone Pf Inj (Dilaudid Pf Inj) (03/10/17 23:30) Hydromorphone Pf Inj (Dilaudid Pf Inj) (03/11/17 00:15) Acetamin-Hydrocod 325-5 Mg ([place] 5-325 (03/11/17 02:15) Labs Laboratory Tests Test 03/10/17 03/11/17 23:30 00:45 White Blood Count 12.3 TH/MM3 Red Blood Count 4.93 MIL/MM3 Hemoglobin 14.9 GM/DL Hematocrit 44.5 % Mean Corpuscular Volume 90.4 FL Mean Corpuscular Hemoglobin 30.2 PG Mean Corpuscular Hemoglobin 33.4 % Concent Red Cell Distribution Width 14.3 % Platelet Count 617 TH/MM3 Mean Platelet Volume 8.5 FL Neutrophils (%) (Auto) 76.0 % Lymphocytes (%) (Auto) 16.5 % Monocytes (%) (Auto) 5.5 % Eosinophils (%) (Auto) 0.9 % Basophils (%) (Auto) 1.1 % Neutrophils # (Auto) 9.3 TH/MM3 Lymphocytes # (Auto) 2.0 TH/MM3 Monocytes # (Auto) 0.7 TH/MM3 Eosinophils # (Auto) 0.1 TH/MM3 Basophils # (Auto) 0.1 TH/MM3 CBC Comment DIFF FINAL Differential Comment Sodium Level 139 MEQ/L Potassium Level 4.2 MEQ/L Chloride Level 102 MEQ/L Carbon Dioxide Level 27.8 MEQ/L Anion Gap 9 MEQ/L Blood Urea Nitrogen 17 MG/DL Creatinine 1.10 MG/DL Estimat Glomerular Filtration 53 ML/MIN Rate Random Glucose 116 MG/DL Calcium Level 9.1 MG/DL Total Bilirubin 0.3 MG/DL Aspartate Amino Transf 18 U/L (AST/SGOT) Alanine Aminotransferase 21 U/L (ALT/SGPT) Alkaline Phosphatase 117 U/L Total Protein 7.8 GM/DL Albumin 3.4 GM/DL Lipase 187 U/L Urine Color YELLOW Urine Turbidity CLEAR Urine pH 7.0 Urine Specific [place] 1.021 Urine Protein TRACE mg/dL Urine Glucose (UA) NEG mg/dL Urine Ketones NEG mg/dL Urine Occult Blood NEG Urine Nitrite NEG Urine Bilirubin NEG Urine Urobilinogen LESS THAN 2.0 MG/DL Urine Leukocyte Esterase NEG Urine RBC 4 /hpf Urine WBC 3 /hpf Urine Squamous Epithelial 1 /hpf Cells Urine Hyaline Casts 1 /lpf Urine Mucus FEW /lpf Microscopic Urinalysis Comment CULT NOT INDICATED MDM Medical Decision Making Medical Screen Exam Complete: Yes Emergency Medical Condition: Yes Medical Record Reviewed: Yes Differential Diagnosis Constipation, Gastritis, Acute Cholecystitis, Biliary Colic, Pancreatitis, SUAREZ , Hepatitis, Bowel Obstruction, Cystitis, Mesenteric Ischemia, AAA, Appendicitis , Renal Stone/Hydronephrosis, GERD, perforated viscous Narrative Course CBC & BMP Diagram 03/10/17 23:30 LFTs and Lipase normal UA: 4 RBCs, no UTI The patient is resting comfortably and feels better, is alert and in no distress. The patients results and examination findings were discussed. The repeat examination is unremarkable and benign. The history, exam, diagnostic testing, and current condition do not suggest any significant pathology to warrant further testing, continued ED treatment, admission, or surgical evaluation at this point. The vital signs have been stable. The patient does not have uncontrollable pain, intractable vomiting, or other significant symptoms. The patient's condition is stable and appropriate for discharge. The patient will pursue further outpatient evaluation with a primary care physician or other designated or consulting physician as indicated in the discharge instructions. The patient expressed understanding and was agreeable with this plan. Diagnosis Primary Impression: Flank pain Additional Impression: Pain of upper abdomen Referrals: Javier Millard DO 2 days Additional Instructions: You have a choice when it comes to health care, and we are glad that you chose [facility]. Hopefully, we have met your expectations on today's visit. You are welcome to return to [facility] at any time, as we are committed to meeting the health care needs of our community. Med/Other Pt SpecificInfo: Prescription(s) given Scripts Tamsulosin (Flomax)0.4 Mg Cap0.4 Mg PO HS #6 CAP Ref 0 Prov:Faustino Francisco MD 03/11/17 Hydrocodone-Acetaminophen (Lortab)5-325 Mg Tab1-2 Tab PO Q6H PRN (PAIN SCALE 6 TO 10) #20 TAB Ref 0 Prov:Faustino Francisco MD 03/11/17 Disposition: 01 DISCHARGE HOME Condition: Stable Faustino Francisco MD March 10, 2017 23:43
[2017-03-11 00:09] LABS: ANION GAP 9 MEQ/L (5-15); AST (GOT) 18 U/L (15-37); BICARBONATE 27.8 MEQ/L (21.0-32.0); BLOOD UREA NITROGEN 17 MG/DL (7-18); CHLORIDE 102 MEQ/L (98-107); GLOMERULAR FILTRATION RATE 53 ML/MIN (>89); POTASSIUM 4.2 MEQ/L (3.5-5.1); SODIUM (NA) 139 MEQ/L (136-145)
[2017-03-11] MEDS ORDERED: HYDROmorphone HCL PF 1 MG/ML VIAL IV PUSH ONE (00:15)
[2017-03-11 00:16] LABS: ALKALINE PHOSPHATASE 117 U/L (45-117); ALT (GPT) 21 U/L (10-53); TOTAL BILIRUBIN ADULT 0.3 MG/DL (0.2-1.0)
[2017-03-11 00:50] VITALS: BP 128/60; PULSE 67; RESP 18; O2SAT 94
[2017-03-11 01:26] LABS: BLOOD, URINE NEG (NEG); COMMENT (UR) CULT NOT INDICATED; CULTURE IF INDICATED CULT NOT INDICATED; GLUCOSE,URINE NEG (NEG); HYALINE CAST, URINE 1 /lpf (RARE); KETONE, URINE NEG (NEG); MUCUS URINE FEW /lpf (OCC); NITRITE,URINE NEG (NEG); SQUAMOUS EPITHELIAL CELL URINE 1 /hpf (0-5); URINE COLOR YELLOW (YELLW/STRAW)
[2017-03-11] MEDS ORDERED: TAMS5CAP PO (01:47)
[2017-03-11] MEDS ORDERED: HYDR-3533 PO (01:47)
[2017-03-11] MEDS ORDERED: ACETAMINOPHEN/HYDROcodone 325 MG/5 MG TAB PO ONE (02:15)
== END 2017-03-11 02:22 | disposition home or self-care (01) ==
LOC: NEPE 22:02
DX: R10.12 Left upper quadrant pain (principal); R11.2 Nausea with vomiting, unspecified
CPT/HCPCS: 80053; 81001; 83690; 85025; 96361; 96374; 96375; 96376; 99284; J1170; J1885; J2405; J7030